=== PATIENT | female | born 1955 | race Caucasian/White ===

== ENCOUNTER 2018-09-12 09:54 | Observation (INO) ==
[2018-09-12 10:38] LABS: Basophils # 0.1 K/mcL (0.0-0.2); Basophils % 0.6 %; Eosinophils # 0.1 K/mcL (0.0-0.6); Eosinophils % 0.8 %; Hematocrit 48.2 % (35.3-44.9); Hemoglobin 15.4 g/dL (11.5-15.4); Immature Granulocytes % 0.9 % (0-4); Lymphocytes # 2.6 K/mcL (0.6-4.6); Lymphocytes % 23.8 %; Mean Corpuscular Hemoglobin 28.9 pg (28.0-33.3); Mean Corpuscular Volume 90.4 fL (83.0-100.0); Mean Platelet Volume 10.5 fL (9.4-12.4); Monocytes # 0.8 K/mcL (0.0-1.3); Monocytes % 7.6 %; Neutrophils # 7.3 K/mcL (1.6-8.9); Platelet Count 194 K/mcL (140-400); Red Blood Count 5.33 M/mcL (3.82-4.97); Red Cell Distribution Width 15.6 % (11.5-14.5); Segmented Neutrophils % 66.3 %; White Blood Count 10.9 K/mcL (4.3-11.1)
[2018-09-12] MEDS ORDERED: cloNIDine HCl 0.1 MG TABLET PO ONE (10:44)
[2018-09-12] MEDS ORDERED: amLODIPine 5 MG TABLET PO STA (10:46)
[2018-09-12 10:58] LABS: BUN/Creatinine Ratio 19 (6-26); Blood Urea Nitrogen 20 mg/dL (8-23); Calcium 8.9 mg/dL (8.6-10.3); Carbon Dioxide 27 mEq/L (23-29); Chloride 107 mEq/L (98-107); Glucose 114 mg/dL (70-105); Osmolality,Calculated 297 (280-300); Potassium 3.3 mEq/L (3.5-5.1); Sodium 142 mEq/L (136-145); Troponin I < 0.03 ng/mL (< 0.04); eGFR For African Americans > 60 (> 60); eGFR For Non-African Americans 53 (> 60)
[2018-09-12 11:01] LABS: Activated Partial Thrombo Time 26.6 Seconds (26.0-36.0); Prothrombin Time 11.6 Seconds (9.4-12.1)
--- NOTE | 2018-09-12 11:21 | Emergency Department Note ---
Disposition Clinical Impression: CVA (cerebral vascular accident), Dyspnea Disposition: Admitted As Inpatient Condition: Good Referrals: Philip Solares DO [Primary Care Provider] - Time of Disposition: 11:20 General Adult HPI - General Chief complaint: ED Shortness of Breath/Dyspnea Stated complaint: GUERRERO Time Seen by Provider: 09/12/18 10:04 Source: patient, EMS Limitations: no limitations Nursing Notes Reviewed: Yes Vital Signs Reviewed: Yes - History of Present Illness HPI Narrative: 63-year-old female presents emergency Department with concerns of difficulty in breathing as well as left upper and left lower extremity weakness and left facial paresthesias. Initially patient reported that her symptoms started at 9 AM this morning however upon further evaluation the patient states her symptoms actually started 2 days ago and have worsened at 9 AM. Stroke alert was called after the initial presentation prior to her stating that it had been going on for 2-3 days. Patient states she does not feel well and has generalized malaise. She denies vomiting, chest pain, abdominal pain, hematochezia, melena. No recent trauma. No changes in her medications. She is significantly hypertensive in the emergency Department however she had not taken her daily antihypertensive medications this morning. These includes clonidine, lisinopril hydrochlorothiazide and amlodipine. Pain Scale: 0 - Related Data Allergies Allergy/AdvReac Type Severity Reaction Status Date / Time No Known Allergies Allergy Verified 09/12/18 10:05 All systems ED: reviewed and negative except as stated. Review of Systems: As Per HPI Past Medical History - Past Medical History Attestation: Yes The following information was validated with the patient. Source: patient Medical history: Reports: CVA, hyperlipidemia, hypertension Psychiatric history: Reports: no psych history - Social History Smoking Status: Former smoker Smokeless Tobacco Status: No Alcohol use: Reports: none Drug use: Reports: none Physical Exam General: Alert and in no acute distress Skin: Warm, dry, intact Head: Normocephalic and atraumatic Neck: Supple, trachea midline and no tenderness Cardiovascular: RRR, no murmur, normal perfusion Respiratory: CTAB, no wheezing, cough, or respiratory distress Musculoskeletal: Normal strength, no tenderness, swelling or deformity GI: Soft, nontender, nondistended. Bowel sounds present Neuro: A&O to person, place, time and situation. 4-5 weakness on the left upper and left lower extremity concerning for possible CVA. Patient does have paresthesias to the entire left side of face. No other cranial nerve deficits. Psychiatric: cooperative and appropriate mood and affect. - General Limitations: no limitations General appearance: alert, in no apparent distress Course Vital Signs Temperature 98.7 F 09/12/18 09:58 Pulse Rate 96 09/12/18 09:58 Respiratory Rate 18 09/12/18 09:58 Blood Pressure 209/152 09/12/18 09:58 O2 Sat by Pulse Oximetry 99 09/12/18 09:58 Temperature 98.7 F 09/12/18 09:58 Pulse Rate 90 09/12/18 10:36 Respiratory Rate 18 09/12/18 10:36 Blood Pressure 162/120 09/12/18 10:36 O2 Sat by Pulse Oximetry 99 09/12/18 09:58 Oxygen Delivery Oxygen Delivery Room Air Medical Decision Making - MDM Narrative Medical decision making narrative: Patient initially presented with concerns of difficulty breathing and generalized malaise however upon further evaluation she reported that she had acute onset of weakness of left upper and left lower extremities. Stroke alert was initiated and then further evaluation stated that she had symptom onset 2-3 days ago and this worsened this morning. CT did not show evidence of acute hemorrhage or mass. I spoke with the [facility] neurologists who recommended that she was safe to stay at [facility] for further evaluation of possible CVA with workup with MRI. Chest x-ray did not show evidence of acute infiltrate. She satting well on room air in the emergency department. Patient is comfortable with the plan for admission to hospitalist. - Medical Records Medical records reviewed: Yes I reviewed the patient's medical records. - Lab Data Lab results reviewed: Yes I reviewed the patient's lab results. Result diagrams: 09/12/18 10:29 09/12/18 10:29 Lab Results 09/12/18 09/12/18 09/12/18 Range/Units 10:09 10:29 10:29 WBC 10.9 (4.3-11.1) K/mcL RBC 5.33 H (3.82-4.97) M/mcL Hgb 15.4 (11.5-15.4) g/dL Hct 48.2 H (35.3-44.9) % MCV 90.4 (83.0-100.0) fL MCH 28.9 (28.0-33.3) pg MCHC 32.0 (31.6-35.5) g/dL RDW 15.6 H (11.5-14.5) % Plt Count 194 (140-400) K/mcL MPV 10.5 (9.4-12.4) fL Immature Gran % 0.9 (0-4) % Seg Neutrophils % 66.3 % Lymphocytes % 23.8 % Monocytes % 7.6 % Eosinophils % 0.8 % Basophils % 0.6 % Neutrophils # 7.3 (1.6-8.9) K/mcL Lymphocytes # 2.6 (0.6-4.6) K/mcL Monocytes # 0.8 (0.0-1.3) K/mcL Eosinophils # 0.1 (0.0-0.6) K/mcL Basophils # 0.1 (0.0-0.2) K/mcL PT (9.4-12.1) Seconds INR APTT (26.0-36.0) Seconds Sodium 142 (136-145) mEq/L Potassium 3.3 L (3.5-5.1) mEq/L Chloride 107 (98-107) mEq/L Carbon Dioxide 27 (23-29) mEq/L BUN 20 (8-23) mg/dL Creatinine 1.05 (0.60-1.20) mg/dL Est GFR ( Amer) > 60 (> 60) Est GFR (Non-Af Amer) 53 L (> 60) BUN/Creatinine Ratio 19 (6-26) Glucose 114 H (70-105) mg/dL POC Glucose 116 H (70-99) mg/dL Calculated Osmolality 297 (280-300) Lactic Acid (0.5-2.2) mmol/L Calcium 8.9 (8.6-10.3) mg/dL Troponin I < 0.03 (< 0.04) ng/mL 09/12/18 09/12/18 Range/Units 10:29 10:51 WBC (4.3-11.1) K/mcL RBC (3.82-4.97) M/mcL Hgb (11.5-15.4) g/dL Hct (35.3-44.9) % MCV (83.0-100.0) fL MCH (28.0-33.3) pg MCHC (31.6-35.5) g/dL RDW (11.5-14.5) % Plt Count (140-400) K/mcL MPV (9.4-12.4) fL Immature Gran % (0-4) % Seg Neutrophils % % Lymphocytes % % Monocytes % % Eosinophils % % Basophils % % Neutrophils # (1.6-8.9) K/mcL Lymphocytes # (0.6-4.6) K/mcL Monocytes # (0.0-1.3) K/mcL Eosinophils # (0.0-0.6) K/mcL Basophils # (0.0-0.2) K/mcL PT 11.6 (9.4-12.1) Seconds INR 1.0 APTT 26.6 (26.0-36.0) Seconds Sodium (136-145) mEq/L Potassium (3.5-5.1) mEq/L Chloride (98-107) mEq/L Carbon Dioxide (23-29) mEq/L BUN (8-23) mg/dL Creatinine (0.60-1.20) mg/dL Est GFR ( Amer) (> 60) Est GFR (Non-Af Amer) (> 60) BUN/Creatinine Ratio (6-26) Glucose (70-105) mg/dL POC Glucose (70-99) mg/dL Calculated Osmolality (280-300) Lactic Acid 1.7 (0.5-2.2) mmol/L Calcium (8.6-10.3) mg/dL Troponin I (< 0.04) ng/mL - Radiology Data Radiology results reviewed: Yes I reviewed the patient's radiology results. - EKG Data EKG #1 EKG attestation: Yes I reviewed and interpreted this EKG. EKG results narrative: Normal sinus rhythm with a rate of 88 without evidence of STEMI or other dysrhythmia.
[2018-09-12] MEDS ORDERED: methylPREDNISolone 125 MG/2 ML VIAL IVP ONE (11:24)
[2018-09-12] MEDS ORDERED: Albuterol 2.5 MG/3 ML NEBULIZER IH ONE (11:24)
[2018-09-12] MEDS ORDERED: Aspirin 81 MG TAB.CHEW PO ONE (11:33)
--- NOTE | 2018-09-12 13:21 | Internal Med History&Physical ---
Date of Encounter: 09/12/18 Time of Encounter: 12:16 Internal Medicine - H&P: HPI History of present illness: Ms. Copeland is a 63 year old female with history of CVA and hypertension presents to ED for a two day history of left sided weakness. She has noticed facial paresthesia, left upper and left lower extremity weakness. She states this feels similar to a past stroke. She is also complaining of episodes of chest pain occuring with this weakness. She does not have any chest pain, palpi tations, vomiting. She had an episode of vomiting. In the ED a stroke alert was called due to concerning symptoms, and patient is not a tpa candidate but they did recommend MRI and further workup. In the ED she was given albuterol without any alleviation of symptoms. She received 324 mg aspirin. BP was elevated with SBP 200s but improved after restarting home medications. Patient states she is still SOB. Past Med Surg Social Fam HX - Past Medical History Medical history: CVA, hyperlipidemia, hypertension Additional medical history: no deficits from CVA Psychiatric history: no psych history - Past Surgical History Additional surgical history: left hip - Social History Smoking Status: Former smoker Smokeless Tobacco Status: No Alcohol use: none Drug use: none Internal Medicine - H&P: Meds Aspirin [Adult Aspirin] 81 mg PO DAILY 09/12/18 [History] Atorvastatin [Lipitor] 80 mg PO HS 09/12/18 [History] BuPROPion XL (24 HR) [Wellbutrin XL] 150 mg PO DAILY 09/12/18 [History] Calcium Carbonate [Calcium] 500 mg PO DAILY 09/12/18 [History] Cholecalciferol (Vitamin D3) [Vitamin D] 2,000 unit PO DAILY 09/12/18 [History] HydrOXYzine [Atarax] 25 mg PO TID PRN 09/12/18 [History] Lisinopril-HCTZ 10-12.5 [Prinzide 10-12.5] 1 each PO DAILY 09/12/18 [History] amLODIPine [Norvasc] 5 mg PO DAILY 09/12/18 [History] cloNIDine HCl [CloNIDine HCl] 0.1 mg PO DAILY 09/12/18 [History] Allergy/AdvReac Type Severity Reaction Status Date / Time No Known Allergies Allergy Verified 09/12/18 10:05 All Systems PM: A 10-system review of systems was performed and is negative for pertinent findings except as documented above in the HPI. - Constitutional Vitals: Temp Pulse Resp BP Pulse Ox 98.7 F 81 18 158/97 94 09/12/18 09:58 09/12/18 12:45 09/12/18 12:45 09/12/18 12:45 09/12/18 12:45 General appearance: Present: A&O X 3, no acute distress Exam: . - Head Head exam: Present: atraumatic, normocephalic - Eye Eye exam: Present: PERRL, conjuntiva pink, sclera anicteric Pupils: Present: PERRL - Neck Neck exam general surgery: Present: supple, trachea midline. Absent: lymphadenopathy - Respiratory Respiratory exam: Present: CTAB. Absent: accessory muscle use, rales, rhonchi, wheezes - Cardiovascular Cardiovascular exam: Present: RRR, +S1, +S2. Absent: diastolic murmur, gallop, rubs, systolic murmur - GI/Abdominal GI/Abdominal exam: Present: normal bowel sounds, soft, no peritoneal signs. Absent: distended, tenderness - Extremities Exam Extremities exam: Present: warm, radial pulses palpable and symmetrical. Absent: calf tenderness, cyanotic, pedal edema - Neurological Exam Neurological exam: Present: CN II-XII intact, oriented X3, no focal deficits. Absent: pronater drift, facial droop, speech deficit - Psychiatric Psychiatric exam: Present: anxious, depressed - Skin Skin exam: Present: dry, intact Additional comments: Both lower extremities have dermatitis above the ankles with some shallow ulcerations without any active bleeding or drainage. Internal Med - H&P Results - Labs CBC & Chem 7: 09/12/18 10:29 09/12/18 10:29 Labs: Short CBC 09/12/18 Range/Units 10:29 WBC 10.9 (4.3-11.1) K/mcL Hgb 15.4 (11.5-15.4) g/dL Hct 48.2 H (35.3-44.9) % Plt Count 194 (140-400) K/mcL Neutrophils # 7.3 (1.6-8.9) K/mcL BMP 09/12/18 10:29 Sodium 142 Potassium 3.3 L Chloride 107 Carbon Dioxide 27 BUN 20 Creatinine 1.05 Glucose 114 H Calcium 8.9 Cardiac Enzymes 09/12/18 Range/Units 10:29 Troponin I < 0.03 (< 0.04) ng/mL - Impressions ITS Impressions Chest X-Ray 09/12/18 10:05 IMPRESSION: Negative portable study. D/ / Naomi Duque Cha, MD / Naomi Duque Cha, MD Interpreting Provider: Naomi Duque Cha, MD Head CT 09/12/18 10:43 IMPRESSION: No acute intracranial hemorrhage, mass effect, or midline shift. Chronic microvascular ischemic changes in the white matter. Lacunar infarct in the right thalamus. Hypodensity in the left thalamus favored to represent a subacute or chronic infarct. Findings discussed with Dr. Spain by Dr. Llanes on 09/12/2018 at 1100 hours. D/ / Raghav Llanes / Raghav Llanes Interpreting Provider: Raghav Llanes - Assessment and Plan (1) Left-sided weakness Current Visit: Yes Status: Acute Assessment and plan: ED course as noted in HPI. Patient states she is still feeling this weakness and parasthesias - Stat MRI - Neurology consult - Echocardiogram - Carotid duplex - Cont aspirin daily. (2) Dyspnea Current Visit: Yes Status: Acute Assessment and plan: Patient states there is no alleviating factors. She is in no acute respiratory distress but she is very anxious appearing. Currently hypertensive and tachycardic and at bedside but she did not have her home clonidine today. Chest x-ray negative, initial troponin negative, EKG does not show any acute findings. BNP borderline elevated at 180. May need to obtain CTA chest to rule out other causes as well as echocardiogram Qualifiers: Dyspnea type: unspecified Qualified Code(s): R06.00 - Dyspnea, unspecified (3) Hypertension Current Visit: Yes Status: Acute Assessment and plan: Will need cautious and gradual lowering of BP, especially if this is acute CVA she may need permissive hypertension. Will follow-up with stat MRI. Qualifiers: Hypertension type: essential hypertension Qualified Code(s): I10 - Essential (primary) hypertension (4) Weakness Current Visit: Yes Status: Acute Assessment and plan: Workup as above. Add B12, TSH, iron studies. (5) DVT prophylaxis Current Visit: Yes Status: Acute Assessment and plan: heparin SQ - Time Spent With Patient Total time spent is greater than 50% in coordination of care (as documented) at patient's floor/unit and/or counseling patient:
[2018-09-12] MEDS ORDERED: Naloxone 0.4 MG/ML INJ IVP PRN (13:45)
[2018-09-12 15:32] LABS: Thyroid Stimulating Hormone 0.449 mcIU/mL (0.340-5.600)
--- NOTE | 2018-09-12 16:59 | Neurology - Consult Note ---
<Nick Plummer - Last Filed: 09/12/18 16:54> Date of Encounter: 09/12/18 Time of Encounter: 16:54 Assessment and Plan (1) CVA (cerebral vascular accident) Current Visit: Yes Status: Suspected Sx are suspicious for acute CVA. I suspect that the HTN emergency has caused vasospasms resulting in the infarct. Risk factors include HLD, poorly controlled HTN NIH - [address]-negative for acute findings; old lacunar infarcts in the rt thalmus and hypodensities in the left thalmus favored to represent a subacute vs chronic infarct. MRI Brain-pending Duplex and echo pending c/w ASA and Statin meds; not recommending med changes at this time In regards to HTN emergency; rec to keep SBP less than 170 Otherwise c/w neurological assessments and NIHSS per protocol C/w telemetry Discussed aggressive risk factor modifications and BP control; may need consultation with HTN specialist as she reports episodes of HTN with severely elevated blood pressures neurology will f/u in am Qualifiers: CVA mechanism: unspecified Qualified Code(s): I63.9 - Cerebral infarction, unspecified History of Present Illness Chief complaint: left arm and facial parasthesias HPI: Ms. Copeland is a 63 year old female with a PMH of CVA, hyperlipidemia, and poorly controlled hypertension who presents to the ED with a CC of left facial and left arm parasthesias and some mild diffuse left sided weakness which began 2-days ago. She denies any visual disturbances, gait disturbances, dysphagia, headaches, chest pain, or palpitations. She admits to HTN with SBP in the 220's and episodic speech slurring. At the time of my assessment her symptoms persist and she reports that they are getting progressively worse. A stroke alert was called and TPA was not recommended given onset of sx. CT of the head shows a questionable area concerning for possible right thalamic infarct. MRI has been completed and the read is pending. Past Med Surg Social Fam HX - Past Medical History Medical history: CVA, hyperlipidemia, hypertension Additional medical history: no deficits from CVA Psychiatric history: no psych history - Past Surgical History Additional surgical history: left hip - Social History Smoking Status: Former smoker Smokeless Tobacco Status: No Alcohol use: none Drug use: none Medications and Allergies Aspirin [Adult Aspirin] 81 mg PO DAILY 09/12/18 [History] Atorvastatin [Lipitor] 80 mg PO HS 09/12/18 [History] BuPROPion XL (24 HR) [Wellbutrin XL] 150 mg PO DAILY 09/12/18 [History] Calcium Carbonate [Calcium] 500 mg PO DAILY 09/12/18 [History] Cholecalciferol (Vitamin D3) [Vitamin D] 2,000 unit PO DAILY 09/12/18 [History] HydrOXYzine [Atarax] 25 mg PO TID PRN 09/12/18 [History] Lisinopril-HCTZ 10-12.5 [Prinzide 10-12.5] 1 each PO DAILY 09/12/18 [History] amLODIPine [Norvasc] 5 mg PO DAILY 09/12/18 [History] cloNIDine HCl [CloNIDine HCl] 0.1 mg PO DAILY 09/12/18 [History] Allergy/AdvReac Type Severity Reaction Status Date / Time No Known Allergies Allergy Verified 09/12/18 10:05 All Systems: The remainder of the systems were reviewed and are negative Review of Systems: REVIEW OF SYSTEMS NEUROLOGIC: Negative for any blurry vision, blind spots, double vision, facial asymmetry, dysphagia, dysarthria, hemiparesis, hemisensory deficits, vertigo, ataxia, seizures, paralysis, tingling, numbness POSITIVE- left arm and face numbness and tingling, left arm and leg weakness, CARDIAC: Negative for any chest pain, dyspnea, peripheral edema or palpitations Physical Examination - Vital Signs Vital Signs: Initial Vital Signs Temp Pulse Resp BP Pulse Ox 98.7 F 96 18 209/152 99 09/12/18 09:58 09/12/18 09:58 09/12/18 09:58 09/12/18 09:58 09/12/18 09:58 - Exam Exam: Examination: General Examination: *CONSTITUTIONAL: Alert and oriented x3, no acute distress *GENERAL APPEARANCE OF PATIENT elderly female generally ill appearing *EYES: pupils equal, round, reactive to light and accommodation, conjunctiva clear without masses or ulcerations, fundi normal. *CARDIOVASCULAR: RRR, no peripheral edema, distal temperature normal, dorsalis pedis pulses normal. Refer to vital signs * MUSCULOSKELETAL: *GAIT AND STATION: Deferred *ASSESSMENT OF MUSCLE STRENGTH IN THE UPPER AND LOWER EXTREMITIES bilateral deltoid, bicep, tricep, plastic maker strength, hip flexors ,anterior tibialis, dorsoflexion of the foot 4/5 *MUSCLE TONE IN THE UPPER AND LOWER EXTREMITIES normal. No abnormal movements, fasciculations or atrophy identified. Neurological: *ORIENTATION to person, situation, time and place *LANGUAGE AND FUNCTION no significant aphasia or dysarthia was noted. *ATTENTION AND CONCENTRATION are normal *LANGUAGE FUNCTION no significant aphasia or dysarthia was noted. *FUND OF KNOWLEDGE aware of current events, past history, vocabulary *MENTAL attention span and concentration normal. *CN II optic fundi were normal, no papilledema noted. *CN III,IV, PERRLA extraocular eye movements were full, no nystagmus and no ptosis noted. *CN V shows normal sensation and jaw opens symmetrically. *CN VII shows normal facial movement symmetrically, upper and lower bilaterally. *CN VIII shows no significant hearing loss on exam *CN IX-Xpalate elevated symmetrically *CN XI normal strength in the sternocleidomastoid muscles, symmetrical shoulder shrugging. *CN XII tongue protruded in the midline, with normal strength and movement. 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 no pathological reflexes were noted. *CEREBELLAR TESTING normal finger to nose *PAIN LEVEL 0/10 Results - Laboratory Findings CBC and BMP: 09/12/18 10:29 09/12/18 10:29 Abnormal lab findings: Abnormal lab results RBC 5.33 M/mcL (3.82-4.97) H 09/12/18 10:29 Hct 48.2 % (35.3-44.9) H 09/12/18 10:29 RDW 15.6 % (11.5-14.5) H 09/12/18 10:29 Potassium 3.3 mEq/L (3.5-5.1) L 09/12/18 10:29 Est GFR (Non-Af Amer) 53 (> 60) L 09/12/18 10:29 Glucose 114 mg/dL (70-105) H 09/12/18 10:29 POC Glucose 116 mg/dL (70-99) H 09/12/18 10:09 B-Natriuretic Peptide 180 pg/mL (Less than 100) H 09/12/18 10:29 - Diagnostic Findings Additional findings: CT/CT stroke alert head wo con IMPRESSION: No acute intracranial hemorrhage, mass effect, or midline shift. Chronic microvascular ischemic changes in the white matter. Lacunar infarct in the right thalamus. Hypodensity in the left thalamus favored to represent a subacute or chronic infarct. Consult Discharge Plan - Plan Referrals: Philip Solares, DO [Primary Care Provider] - <Juan J Amado - Last Filed: 09/12/18 18:11> Date of Encounter: 09/12/18 Assessment and Plan (1) CVA (cerebral vascular accident) Current Visit: Yes Status: Suspected I have personally performed a [id number] assessment of the patient and have reviewed the PA/CONSUMER SAFETY INSPECTOR note. My impressions are as follows: MRI scan of the brain does reveal small areas adjacent to the old infarcts that I believe could be acute infarct. Certainly the location is fitting of her presenting symptoms. I agree with the assessment and plan as outlined above by the MAKEUP ARTISTRY INSTRUCTOR. Since this is likely a vasospastic event due to extreme hypertension, I would not designate this is an aspirin failure. I agree with the recommending aggressive management of her stroke risk factors. Would allow for permissive hypertension for the next 24-48 hrs. and then normalize. I agree with the blood pressure parameters as outlined above. Qualifiers: CVA mechanism: unspecified Qualified Code(s): I63.9 - Cerebral infarction, unspecified History of Present Illness HPI: Chart was reviewed, the patient was seen and examined independently. The case was discussed with the MAKEUP ARTISTRY INSTRUCTOR. I agree with his assessment of the history of present illness as documented above. I did review the MRI scan of the brain which does reveal what appears to be a small area of acute infarct adjacent to the old infarct present in the right thalamus. Patient was extremely hypertensive upon admission. All Systems: The remainder of the systems were reviewed and are negative Review of Systems: The balance of the systems review is negative. Physical Examination - Vital Signs Vital Signs: Initial Vital Signs Temp Pulse Resp BP Pulse Ox 98.7 F 96 18 209/152 99 09/12/18 09:58 09/12/18 09:58 09/12/18 09:58 09/12/18 09:58 09/12/18 09:58 - Exam Exam: I have personally performed a [id number] assessment of the patient and have reviewed the PA/CONSUMER SAFETY INSPECTOR note. My impressions are as follows: I agree with the neurologic examination as documented above. Results - Laboratory Findings CBC and BMP: 09/12/18 10:29 09/12/18 10:29 Abnormal lab findings: Abnormal lab results RBC 5.33 M/mcL (3.82-4.97) H 09/12/18 10:29 Hct 48.2 % (35.3-44.9) H 09/12/18 10:29 RDW 15.6 % (11.5-14.5) H 09/12/18 10:29 Potassium 3.3 mEq/L (3.5-5.1) L 09/12/18 10:29 Est GFR (Non-Af Amer) 53 (> 60) L 09/12/18 10:29 Glucose 114 mg/dL (70-105) H 09/12/18 10:29 POC Glucose 116 mg/dL (70-99) H 09/12/18 10:09 B-Natriuretic Peptide 180 pg/mL (Less than 100) H 09/12/18 10:29
--- NOTE | 2018-09-12 18:00 | Neurology - Consult Note ---
Date of Encounter: 09/12/18 Time of Encounter: 18:00 Assessment and Plan (1) CVA (cerebral vascular accident) Current Visit: Yes Status: Suspected Qualifiers: CVA mechanism: unspecified Qualified Code(s): I63.9 - Cerebral infarction, unspecified History of Present Illness HPI: Ms. Copeland is a 63 year old female Past Med Surg Social Fam HX - Past Medical History Medical history: CVA, hyperlipidemia, hypertension Additional medical history: no deficits from CVA Psychiatric history: no psych history - Past Surgical History Additional surgical history: left hip - Social History Smoking Status: Former smoker Smokeless Tobacco Status: No Alcohol use: none Drug use: none Medications and Allergies Aspirin [Adult Aspirin] 81 mg PO DAILY 09/12/18 [History] Atorvastatin [Lipitor] 80 mg PO HS 09/12/18 [History] BuPROPion XL (24 HR) [Wellbutrin XL] 150 mg PO DAILY 09/12/18 [History] Calcium Carbonate [Calcium] 500 mg PO DAILY 09/12/18 [History] Cholecalciferol (Vitamin D3) [Vitamin D] 2,000 unit PO DAILY 09/12/18 [History] HydrOXYzine [Atarax] 25 mg PO TID PRN 09/12/18 [History] Lisinopril-HCTZ 10-12.5 [Prinzide 10-12.5] 1 each PO DAILY 09/12/18 [History] amLODIPine [Norvasc] 5 mg PO DAILY 09/12/18 [History] cloNIDine HCl [CloNIDine HCl] 0.1 mg PO DAILY 09/12/18 [History] Allergy/AdvReac Type Severity Reaction Status Date / Time No Known Allergies Allergy Verified 09/12/18 10:05 All Systems: The remainder of the systems were reviewed and are negative Physical Examination - Vital Signs Vital Signs: Initial Vital Signs Temp Pulse Resp BP Pulse Ox 98.7 F 96 18 209/152 99 09/12/18 09:58 09/12/18 09:58 09/12/18 09:58 09/12/18 09:58 09/12/18 09:58 Results - Laboratory Findings CBC and BMP: 09/12/18 10:29 09/12/18 10:29 Abnormal lab findings: Abnormal lab results RBC 5.33 M/mcL (3.82-4.97) H 09/12/18 10:29 Hct 48.2 % (35.3-44.9) H 09/12/18 10:29 RDW 15.6 % (11.5-14.5) H 09/12/18 10:29 Potassium 3.3 mEq/L (3.5-5.1) L 09/12/18 10:29 Est GFR (Non-Af Amer) 53 (> 60) L 09/12/18 10:29 Glucose 114 mg/dL (70-105) H 09/12/18 10:29 POC Glucose 116 mg/dL (70-99) H 09/12/18 10:09 B-Natriuretic Peptide 180 pg/mL (Less than 100) H 09/12/18 10:29 Consult Discharge Plan - Plan Referrals: Philip Solares DO [Primary Care Provider] -
[2018-09-12] MEDS ORDERED: *HR* Labetalol 20 MG/4 ML SYRINGE IVP PRN ×2 (18:08→18:10)
[2018-09-12] MEDS ORDERED: *HR* LORazepam 2 MG/ML VIAL IVP ONE (18:09)
[2018-09-13] MEDS: *HR* Heparin 5,000 UNIT/ML VIAL SQ SCH ×2 (05:20→17:13)
[2018-09-13] MEDS: Cholecalciferol (D-3) 1,000 UNIT (25MCG) TABLET PO SCH (08:19)
[2018-09-13] MEDS: amLODIPine 5 MG TABLET PO SCH (08:20)
[2018-09-13] MEDS: BuPROPion XL (24 HR) 150 MG TABLET PO SCH (08:20)
[2018-09-13] MEDS: Aspirin Enteric Coated 81 MG Tablet PO SCH (08:20)
[2018-09-13] MEDS ORDERED: cloNIDine HCl 0.1 MG TABLET PO SCH (09:00)
--- NOTE | 2018-09-13 11:25 | Neurology Progress Note ---
<Nick Plummer Oni - Last Filed: 09/13/18 11:17> Date of Encounter: 09/13/18 Time of Encounter: 11:18 Assessment and Plan (1) CVA (cerebral vascular accident) Current Visit: Yes Status: Suspected Presented with sx of left face and left arm numbness and tingling in the setting of accelerated HTN with SBP in the 200's Sx are persistent today but neurologically there are no finding of any focal deficits CT head was negative for acute infarct showing only chronic findings MRI of the brain did not reveal any acute infarct or intracranial findings Sx are PLAN: c/w Daily ASA and Lipitor at home dose goal SBP less than 170 SBP less than 100 DBP discussed med compliance, strict HTN management, and lifestyle modifications having issues with HTN at home; rec HTN specialist consultation to assist with management Qualifiers: CVA mechanism: unspecified Qualified Code(s): I63.9 - Cerebral infarction, unspecified Objective - Constitutional Vitals: Temp Pulse Resp BP Pulse Ox 97.5 F L 90 16 146/87 97 09/13/18 10:31 09/13/18 10:31 09/13/18 10:31 09/13/18 10:31 09/13/18 10:31 Results - Laboratory Findings CBC and BMP: 09/12/18 10:29 09/12/18 10:29 Abnormal lab findings: Abnormal lab results RBC 5.33 M/mcL (3.82-4.97) H 09/12/18 10:29 Hct 48.2 % (35.3-44.9) H 09/12/18 10:29 RDW 15.6 % (11.5-14.5) H 09/12/18 10:29 Potassium 3.3 mEq/L (3.5-5.1) L 09/12/18 10:29 Est GFR (Non-Af Amer) 53 (> 60) L 09/12/18 10:29 Glucose 114 mg/dL (70-105) H 09/12/18 10:29 POC Glucose 192 mg/dL (70-99) H 09/12/18 20:16 B-Natriuretic Peptide 180 pg/mL (Less than 100) H 09/12/18 10:29 Consult Discharge Plan - Plan Referrals: Philip Solares DO [Primary Care Provider] - (Appointment has been requested.) <Juan J Amado - Last Filed: 09/13/18 15:52> Date of Encounter: 09/13/18 Assessment and Plan (1) CVA (cerebral vascular accident) Current Visit: Yes Status: Suspected I have personally performed a [id number] assessment of the patient and have reviewed the PA/POTTERY STRIPER note. My impressions are as follows: I agree with the assessment of the CMP a stated above. However I would recommend we obtain a carotid Doppler study prior to discharge. 25 minutes was spent with patient today of which greater than 50% of that time was spent in [id number] contact which consisted of obtaining clinical history, neurologic examination discussing test results counseling and coordinating care. Qualifiers: CVA mechanism: unspecified Qualified Code(s): I63.9 - Cerebral infarction, unspecified Subjective Interval history: The chart was reviewed, the patient was seen and examined independently. Patient had an uneventful night. She feels some better today however she still has some sense of paresthesias involving the left him zena-soma. Echocardiogram was unrevealing. I believe we still need to obtain a carotid Doppler study. Blood pressure has been better controlled since admission. Objective - Constitutional Vitals: Temp Pulse Resp BP Pulse Ox 97.9 F 79 15 118/68 96 09/13/18 15:30 09/13/18 15:30 09/13/18 15:30 09/13/18 15:30 09/13/18 15:30 Exam: Examination: General Examination: *CONSTITUTIONAL: Alert and oriented x3, no acute distress *GENERAL APPEARANCE OF PATIENT elderly female generally ill appearing *EYES: pupils equal, round, reactive to light and accommodation, con junctiva clear without masses or ulcerations, fundi normal. *CARDIOVASCULAR: RRR, no peripheral edema, distal temperature normal, dorsalis pedis pulses normal. Refer to vital signs * MUSCULOSKELETAL: *GAIT AND STATION: Deferred *ASSESSMENT OF MUSCLE STRENGTH IN THE UPPER AND LOWER EXTREMITIES bilateral deltoid, bicep, tricep, sole leveler machine strength, hip flexors ,anterior tibialis, dorsoflexion of the foot 4/5 throughout. *MUSCLE TONE IN THE UPPER AND LOWER EXTREMITIES normal. No abnormal movements, fasciculations or atrophy identified. Neurological: *ORIENTATION to person, situation, time and place *LANGUAGE AND FUNCTION no significant aphasia or dysarthia was noted. *ATTENTION AND CONCENTRATION are normal *LANGUAGE FUNCTION no significant aphasia or dysarthia was noted. *FUND OF KNOWLEDGE aware of current events, past history, vocabulary *MENTAL attention span and concentration normal. *CN II optic fundi were normal, no papilledema noted. *CN III,IV, PERRLA extraocular eye movements were full, no nystagmus and no ptosis noted. *CN V shows normal sensation and jaw opens symmetrically. *CN VII shows normal facial movement symmetrically, upper and lower bilaterally. *CN VIII shows no significant hearing loss on exam *CN IX-Xpalate elevated symmetrically *CN XI normal strength in the sternocleidomastoid muscles, symmetrical shoulder shrugging. *CN XII tongue protruded in the midline, with normal strength and movement. 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 no pathological reflexes were noted. *CEREBELLAR TESTING normal finger to nose *PAIN LEVEL 0/10 Results - Laboratory Findings CBC and BMP: 09/12/18 10:29 09/12/18 10:29 Abnormal lab findings: Abnormal lab results RBC 5.33 M/mcL (3.82-4.97) H 09/12/18 10:29 Hct 48.2 % (35.3-44.9) H 09/12/18 10:29 RDW 15.6 % (11.5-14.5) H 09/12/18 10:29 Potassium 3.3 mEq/L (3.5-5.1) L 09/12/18 10:29 Est GFR (Non-Af Amer) 53 (> 60) L 09/12/18 10:29 Glucose 114 mg/dL (70-105) H 09/12/18 10:29 POC Glucose 192 mg/dL (70-99) H 09/12/18 20:16 B-Natriuretic Peptide 180 pg/mL (Less than 100) H 09/12/18 10:29
--- NOTE | 2018-09-13 12:52 | Electrocardiograph Report ---
[address] [place], [place] [address] Test Date: 2018-09-12 Pat Name: Ana Maria Copeland Department: [id number] Room: 3B16 Gender: F Top Trimmer: : [id number] Requested By: Josh Spain Order Number: [id number] Reading MD: Ninfa Diego Measurements Intervals [place] Rate: 88 P: 47 NV: 126 QRS: 12 QRSD: 82 T: 107 QT: 399 QTc: 483 Interpretive Statements Sinus rhythm Nonspecific ST-T abnormality Electronically Signed On 09-13-2018 12:51:07 EDT by Ninfa Diego
--- NOTE | 2018-09-13 13:53 | Internal Med Progress Note ---
Hospitalist Progress Note - Encounter Date of Encounter: 09/13/18 Time of Encounter: 13:51 - Subjective Interval History: Pt seen and examined in the room. Pt reported numbness and weakness of the left side have improved. He has no headache, seizure activity, or aphasia. - Exam Vitals: Temp Pulse Resp BP Pulse Ox 97.5 F L 90 16 146/87 97 09/13/18 10:31 09/13/18 10:31 09/13/18 10:31 09/13/18 10:31 09/13/18 10:31 Exam: PHYSICAL EXAMINATION: GENERAL APPEARANCE: The patient is alert, oriented and in no acute distress. HEENT: Head is normocephalic. The sinuses are nontender. Pupils are equal and reactive. The nares are patent. Oropharynx clear without lesions. NECK: Supple without lymphadenopathy. HEART: Regular rate and rhythm. LUNGS: No crackles or wheezes are heard. ABDOMEN: Soft, nontender, nondistended with good bowel sounds heard. Inguinal area is normal. EXTREMITIES: Without cyanosis, clubbing or edema. NEUROLOGICAL: Gross nonfocal. SKIN: Warm and dry without any rash. - Assessment and Plan (1) Dyspnea Current Visit: Yes Status: Acute Assessment and Plan: Pt denies chest pain and sob. (2) Left-sided weakness Current Visit: Yes Status: Acute Assessment and Plan: 09/12 ED course as noted in HPI. Patient states she is still feeling this weakness and parasthesias - Stat MRI - Neurology consult - Echocardiogram - Carotid duplex - Cont aspirin daily. 09/13 Neuro following. (3) DVT prophylaxis Current Visit: Yes Status: Acute Assessment and Plan: heparin SQ (4) Hypertension Current Visit: Yes Status: Acute Assessment and Plan: Neuro following. (5) Weakness Current Visit: Yes Status: Acute Assessment and Plan: Workup as above. - Time Spent with Patient Total time spent is greater than 50% in coordination of care (as documented) at patient's floor/unit and/or counseling patient: Greater than 35 minutes Plan of Care Discussed with: patient Internal Medicine: Result - Labs CBC & Chem 7: 09/12/18 10:29 09/12/18 10:29 Labs: Cardiac Enzymes 09/13/18 Range/Units 11:58 Troponin I < 0.03 (< 0.04) ng/mL - ABG Interpretation ABG results: PT/INR, D-dimer PT 11.6 Seconds (9.4-12.1) 09/12/18 10:51 - Impressions Impressions Brain MRI 09/12/18 13:49 IMPRESSION: Cerebral atrophy. Severe chronic small vessel ischemic disease. Previous areas of injury or infarct in the basal ganglia and thalami. There are no areas of restricted diffusion to suggest an acute ischemic event. D/ / 09/12/2018 17:31:49 Merari Richmond MD / delores Interpreting Provider: Merari Richmond MD Echocardiogram 09/12/18 13:49 Impressions: Sinus tachycardia. LVEF 65-70%. Indeterminate diastolic function. Normal right ventricular structure and function. No significant valvular dysfunction. No pulmonary hypertension based on TR signal obtained. Left Ventricular Wall Motion: Rest Echo Findings All wall segments showed normal motion. Findings: Study Quality * Technically adequate exam. ECG Findings * Sinus tachycardia. Left Ventricle * LVEF 65-70%. * Indeterminate diastolic function. * LV chamber size and wall thickness are grossly normal. Right Ventricle * Normal right ventricular structure and function. Left Atrium * Normal left atrial size. Right Atrium * Normal right atrial size. Aortic Valve * No aortic regurgitation. * Aortic valve not well visualized. * No aortic stenosis. Mitral Valve * No mitral regurgitation. * No mitral stenosis. * Mitral valve not well visualized. Tricuspid Valve * Tricuspid valve not well visualized. * Trace tricuspid regurgitation. * Estimated RA pressure is 8 mmHg. Pulmonic Valve * Pulmonic valve is not well visualized. * No pulmonic stenosis. * No pulmonic regurgitation. Pulmonary Artery * Pulmonary artery not well visualized. Aorta * Not well visualized. Pericardium * There is no pericardial effusion present. Interatrial Septum * No evidence of PFO by color Doppler. IVC * The IVC is not dilated. * < 50% respiratory change. Consult Discharge Plan - Plan Referrals: Philip Solares DO [Primary Care Provider] - (Appointment has been requested.) (1) Dyspnea Qualifiers: Dyspnea type: unspecified Qualified Code(s): R06.00 - Dyspnea, unspecified (4) Hypertension Qualifiers: Hypertension type: essential hypertension Qualified Code(s): I10 - Essential (primary) hypertension
[2018-09-13] MEDS: cloNIDine HCl 0.1 MG TABLET PO SCH (21:46)
[2018-09-14 01:07] LABS: Basophils % 0.3 %; Eosinophils % 0.2 %; Hematocrit 41.9 % (35.3-44.9); Immature Granulocytes % 0.8 % (0-4); Lymphocytes # 1.8 K/mcL (0.6-4.6); Lymphocytes % 14.1 %; Mean Corpuscular HGB Conc 31.5 g/dL (31.6-35.5); Mean Corpuscular Hemoglobin 29.3 pg (28.0-33.3); Mean Corpuscular Volume 93.1 fL (83.0-100.0); Mean Platelet Volume 10.7 fL (9.4-12.4); Monocytes % 7.6 %; Neutrophils # 9.9 K/mcL (1.6-8.9); Platelet Count 191 K/mcL (140-400); Red Cell Distribution Width 15.9 % (11.5-14.5); White Blood Count 12.8 K/mcL (4.3-11.1)
[2018-09-14 01:12] LABS: Hemoglobin 13.2 g/dL (11.5-15.4)
[2018-09-14 01:22] LABS: Calcium 8.5 mg/dL (8.6-10.3); Potassium 4.1 mEq/L (3.5-5.1)
[2018-09-14] MEDS: *HR* Heparin 5,000 UNIT/ML VIAL SQ SCH (05:37)
--- NOTE | 2018-09-14 08:39 | Discharge Summary ---
- NOTES TO OUTPATIENT PROVIDER Notes to Outpatient Provider: f/u with PCP within 2 weeks. Orders not resulted at time of discharge: Pending orders 09/12/18 14:09 Vitamin B1 (Thiamine) Whole Bl Routine Date of Encounter: 09/14/18 Time of Encounter: 08:35 - Discharge Diagnosis (1) Dyspnea Priority: Primary Status: Acute Qualifiers: Dyspnea type: unspecified Qualified Code(s): R06.00 - Dyspnea, unspecified (2) Left-sided weakness Priority: Primary Status: Acute (3) DVT prophylaxis Priority: Primary Status: Acute (4) Hypertension Priority: Secondary Status: Chronic Qualifiers: Hypertension type: essential hypertension Qualified Code(s): I10 - Essential (primary) hypertension (5) Weakness Priority: Secondary Status: Chronic Hospital course: Ms. Copeland is a 63 year old female with history of CVA and hypertension presents to ED for a two day history of left sided weakness. She has noticed facial paresthesia, left upper and left lower extremity weakness. She states this feels similar to a past stroke. She is also complaining of episodes of chest pain occuring with this weakness. She does not have any chest pain, palpitations, vomiting. She had an episode of vomiting. In the ED a stroke alert was called due to concerning symptoms, and patient is not a tpa candidate but they did recommend MRI and further workup. In the ED she was given albuterol without any alleviation of symptoms. She received 324 mg aspirin. BP was elevated with SBP 200s but improved after restarting home medications. Patient states she is still SOB. Further workup including MRI of brain was negative for stroke. Pt symptoms have resolved. Her BP was elevated, BP meds have adjusted, currently BP was controlled. Pt is discharged home today, f/u with PCP within 2 weeks. Discharge discussed with: patient Time spent discussing smoking cessation with patient: more than 10 minutes - Time Spent with Patient Total time spent providing and/or coordinating discharge services: Time spent: Greater than 30 minutes - Discharge Medications Prescriptions: New Lisinopril [Zestril] 20 mg PO DAILY #30 tablet Continued BuPROPion XL (24 HR) [Wellbutrin Xl] 150 mg PO DAILY amLODIPine [Norvasc] 5 mg PO DAILY cloNIDine HCl [CloNIDine HCl] 0.1 mg PO BID Calcium Carbonate [Calcium] 500 mg PO DAILY Cholecalciferol (Vitamin D3) [Vitamin D3] 2,000 unit PO DAILY cloNIDine HCl [CloNIDine HCl] 0.05 mg PO 1200 Aspirin [Adult Aspirin Regimen] 81 mg PO DAILY Atorvastatin Calcium [Lipitor] 80 mg PO HS Glucosamine Sulfate Dipot Chlr [Glucosamine] 1,000 mg PO DAILY hydrOXYzine HCl [Hydroxyzine HCl] 25 - 50 mg PO Q6H PRN PRN Reason: Anxiety Discontinued Lisinopril/Hydrochlorothiazide [Zestoretic 20-25 mg Tablet] 1 tab PO BID Home Medications: BuPROPion XL (24 HR) [Wellbutrin Xl] 150 mg PO DAILY 09/12/18 [History] Calcium Carbonate [Calcium] 500 mg PO DAILY 09/12/18 [History] Cholecalciferol (Vitamin D3) [Vitamin D3] 2,000 unit PO DAILY 09/12/18 [History] amLODIPine [Norvasc] 5 mg PO DAILY 09/12/18 [History] cloNIDine HCl [CloNIDine HCl] 0.05 mg PO 1200 09/12/18 [History] cloNIDine HCl [CloNIDine HCl] 0.1 mg PO BID 09/12/18 [History] Aspirin [Adult Aspirin Regimen] 81 mg PO DAILY 09/13/18 [History] Atorvastatin Calcium [Lipitor] 80 mg PO HS 09/13/18 [History] Glucosamine Sulfate Dipot Chlr [Glucosamine] 1,000 mg PO DAILY 09/13/18 [History] hydrOXYzine HCl [Hydroxyzine HCl] 25 - 50 mg PO Q6H PRN 09/13/18 [History] Lisinopril [Zestril] 20 mg PO DAILY #30 tablet 09/14/18 [Rx] Allergies/Adverse Reactions: Allergy/AdvReac Type Severity Reaction Status Date / Time No Known Allergies Allergy Verified 09/13/18 17:39 Date of admission: 09/12/18 12:39 Primary care physician: Philip Solares Consults: 09/12/18 13:49 Consult to Physical Therapy [CONS] Routine Comment: Evaluate, develop and implement POC Reason for Consult: Disposition planning. Therapy - weakness in bed. Does patient have active BEDREST order?: No Is patient medically & hemodynamically stable?: Yes 09/12/18 14:15 Consult to Neurology [CONS] Routine Consulting Provider: Neurology [facility] Reason for Consult: r/o CVA Call Completed: Yes Anticipated date of discharge: 09/14/18 - Constitutional Vitals: Temp Pulse Resp BP Pulse Ox 97.4 F L 75 14 143/92 97 09/14/18 06:33 09/14/18 06:33 09/14/18 06:33 09/14/18 06:33 09/14/18 06:33 General appearance: Present: A&O X 3, no acute distress Exam: PHYSICAL EXAMINATION: GENERAL APPEARANCE: The patient is alert, oriented and in no acute distress. HEENT: Head is normocephalic. The sinuses are nontender. Pupils are equal and reactive. The nares are patent. Oropharynx clear without lesions. NECK: Supple without lymphadenopathy. HEART: Regular rate and rhythm. LUNGS: No crackles or wheezes are heard. ABDOMEN: Soft, nontender, nondistended with good bowel sounds heard. Inguinal area is normal. EXTREMITIES: Without cyanosis, clubbing or edema. NEUROLOGICAL: Gross nonfocal. SKIN: Warm and dry without any rash. - Patient Status Disposition: Home, Self-Care Condition: Good Functional capacity at discharge: independent ambulation Overall status at discharge: patient is progressing back to baseline - Discharge Instructions Follow Up With: Philip Solares DO [Primary Care Provider] - (Appointment has been requested.) - Diet and Activity Activity: increase activity as tolerated Diet: low fat, low cholesterol, low salt diet
--- NOTE | 2018-09-14 08:52 | Neurology Progress Note ---
<Nick Plummer - Last Filed: 09/14/18 11:46> Date of Encounter: 09/14/18 Time of Encounter: 08:50 Assessment and Plan (1) TIA (transient ischemic attack) Status: Acute Patient seen in follow-up with concerns for acute CVA VS TIA. She had symptoms consisting of left facial and left arm numbness and tingling. Currently, her symptoms persist but somewhat but have improved since admission. Of note, she also had hypertensive emergency on admission with SBP in the 220s. MRI findings did not reveal any acute changes. Nevertheless her symptoms were likely brought on by hypertensive emergency and one could consider a TIA as the cause of symptoms. We do note recommend any changes to her current secondary stroke preventative measures with aspirin and Lipitor. A TTE was completed and did not identify any PFO or valvular DYSFUNCTION AND HAD AN EF of 65-70%. A carotid duplex study shows non-stenotic plaque bilaterally. Neurology will sign off at this time. Please follow-up with neurology upon DC. Subjective Principal diagnosis: f/u for suspected CVA Interval history: Seen in f/u for suspected CVA. SX are consistent with infarct although MRI findings do not suggest an acute infarct; consider a subacute infarct in the Rt thalmus. Nonetheless her sx were brought on by HTN emergency and the treatment does not change. Continue current secondary preventative measures and strict HTN control. Objective - Constitutional Vitals: Temp Pulse Resp BP Pulse Ox 97.4 F L 75 14 143/92 97 09/14/18 06:33 09/14/18 06:33 09/14/18 06:33 09/14/18 06:33 09/14/18 06:33 Exam: Examination: General Examination: *CONSTITUTIONAL: Alert and oriented x3, no acute distress *GENERAL APPEARANCE OF PATIENT elderly female generally ill appearing *EYES: pupils equal, round, reactive to light and accommodation, conjunctiva clear without masses or ulcerations, fundi normal. *CARDIOVASCULAR: regular rate and rhythm, no peripheral edema, distal temperature normal, dorsalis pedis pulses normal. Refer to vital signs * MUSCULOSKELETAL: *GAIT AND STATION: Deferred *ASSESSMENT OF MUSCLE STRENGTH IN THE UPPER AND LOWER EXTREMITIES bilateral deltoid, bicep, tricep, geophysical e logger strength, hip flexors ,anterior tibialis, dorsoflexion of the foot 4/5 throughout. *MUSCLE TONE IN THE UPPER AND LOWER EXTREMITIES normal. No abnormal movements, fasciculations or atrophy identified. Neurological: *ORIENTATION to person, situation, time and place *LANGUAGE AND FUNCTION no significant aphasia or dysarthia was noted. *ATTENTION AND CONCENTRATION are normal *LANGUAGE FUNCTION no significant aphasia or dysarthia was noted. *FUND OF KNOWLEDGE aware of current events, past history, vocabulary *MENTAL attention span and concentration normal. *CN II optic fundi were normal, no papilledema noted. *CN III,IV, PERRLA extraocular eye movements were full, no nystagmus and no ptosis noted. *CN V shows normal sensation and jaw opens symmetrically. *CN VII shows normal facial movement symmetrically, upper and lower bilaterally. *CN VIII shows no significant hearing loss on exam *CN IX-X palate elevated symmetrically *CN XI normal strength in the sternocleidomastoid muscles, symmetrical shoulder shrugging. *CN XII tongue protruded in the midline, with normal strength and movement. 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 no pathological reflexes were noted. *CEREBELLAR TESTING normal finger to nose *PAIN LEVEL 0/10 Results - Laboratory Findings CBC and BMP: 09/14/18 00:37 09/14/18 00:37 Abnormal lab findings: Abnormal lab results WBC 12.8 K/mcL (4.3-11.1) H 09/14/18 00:37 RBC 5.33 M/mcL (3.82-4.97) H 09/12/18 10:29 Hct 48.2 % (35.3-44.9) H 09/12/18 10:29 MCHC 31.5 g/dL (31.6-35.5) L 09/14/18 00:37 RDW 15.9 % (11.5-14.5) H 09/14/18 00:37 Neutrophils # 9.9 K/mcL (1.6-8.9) H 09/14/18 00:37 Potassium 3.3 mEq/L (3.5-5.1) L 09/12/18 10:29 Chloride 109 mEq/L (98-107) H 09/14/18 00:37 BUN 43 mg/dL (8-23) H 09/14/18 00:37 Creatinine 1.45 mg/dL (0.60-1.20) H 09/14/18 00:37 Est GFR ( Amer) 44 (> 60) L 09/14/18 00:37 Est GFR (Non-Af Amer) 36 (> 60) L 09/14/18 00:37 BUN/Creatinine Ratio 30 (6-26) H 09/14/18 00:37 Glucose 138 mg/dL (70-105) H 09/14/18 00:37 POC Glucose 146 mg/dL (70-99) H 09/13/18 20:07 Calculated Osmolality 301 (280-300) H 09/14/18 00:37 Calcium 8.5 mg/dL (8.6-10.3) L 09/14/18 00:37 B-Natriuretic Peptide 180 pg/mL (Less than 100) H 09/12/18 10:29 Consult Discharge Plan - Plan Instructions: Lisinopril (By mouth), Transient Ischemic Attack (DC), Fall Prevention, Wharf Attendant (GEN) Additional Instructions: Follow-up appointments: If there is not an appointment listed below, please call your physician and schedule a follow-up appointment. If you have congestive heart failure and your symptoms return, make an appointment with your physician. Medication List: Carry an up to date list of medications you are taking at all time. We have given you an updated medication list including any new medications that you have been prescribed. Please provide that list to your primary provider Symptoms: If your condition changes or you experience any of the following symptoms, notify your physician immediately: Unusual or worsening pain, fever, persistent nausea and vomiting, bleeding, increase in swelling (especially in your legs), sudden weight gain, extreme dizziness, chest pain, increased drainage or redness from a wound or incision. Go to the emergency department if you experience a problem with breathing. Weights: If you have a history of swelling or shortness of breath, weigh yourself daily and notify your physician if you have a weight gain of two or more pounds in one day or 5 or more pounds in a week. If you experience any of the warning signs for stroke: Sudden numbness or weakness of the face, arm or leg; especially on one side of the body, sudden confusion, trouble speaking or understanding, sudden trouble seeing in one or both eyes, sudden trouble walking, dizziness, loss of balance or coordination, sudden sever headache with no cause; Call 911 or go to the emergency room. Stroke is a medical emergency. Some risk factors for stroke: Age, cigarette smoking, diabetes, excessive alcohol consumption, family history, high blood pressure, overweight, physical inactivity, prior stroke, heart attack, diagnosis of carotid artery stenosis or other artery disease. If you smoke, STOP: Smoking or tobacco use significantly increases your risk of heart and lung disease. Your chance of disease greatly increases if you continue to smoke. For more information, call the [employer] tobacco quit line for smoking cessation 7-316-VVMF-NOW ( ) Referrals: Philip Solares, [Primary Care Provider] - (Please contact the office to schedule a follow up in 7-10 days. Thank you. ) Prescriptions: Lisinopril [Zestril] 20 mg PO DAILY #30 tablet <Juan J Amado - Last Filed: 09/14/18 16:51> Date of Encounter: 09/14/18 Assessment and Plan (1) TIA (transient ischemic attack) Status: Acute I have personally performed a [id number] assessment of the patient and have reviewed the PA/CONCERT OR LECTURE HALL MANAGER note. My impressions are as follows: I agree with the assessment and plan as documented above by the MANAGER ROOM. I will reevaluate her at your request. Subjective Interval history: Chart was reviewed, patient was seen and examined independently. Case was discussed with the MANAGER ROOM. I agree with his documentation of the history of prese nt illness as stated above. Objective - Constitutional Vitals: Temp Pulse Resp BP Pulse Ox 97.8 F 72 20 136/93 97 09/14/18 10:40 09/14/18 10:40 09/14/18 10:40 09/14/18 10:40 09/14/18 10:40 Exam: I have personally performed a kzoh-qy-peci assessment of the patient and have reviewed the PA/CONCERT OR LECTURE HALL MANAGER note. My impressions are as follows: I agree with the documentation of the neurologic exam as above. Results - Laboratory Findings CBC and BMP: 09/14/18 00:37 09/14/18 00:37 Abnormal lab findings: Abnormal lab results WBC 12.8 K/mcL (4.3-11.1) H 09/14/18 00:37 RBC 5.33 M/mcL (3.82-4.97) H 09/12/18 10:29 Hct 48.2 % (35.3-44.9) H 09/12/18 10:29 MCHC 31.5 g/dL (31.6-35.5) L 09/14/18 00:37 RDW 15.9 % (11.5-14.5) H 09/14/18 00:37 Neutrophils # 9.9 K/mcL (1.6-8.9) H 09/14/18 00:37 Potassium 3.3 mEq/L (3.5-5.1) L 09/12/18 10:29 Chloride 109 mEq/L (98-107) H 09/14/18 00:37 BUN 43 mg/dL (8-23) H 09/14/18 00:37 Creatinine 1.45 mg/dL (0.60-1.20) H 09/14/18 00:37 Est GFR ( Amer) 44 (> 60) L 09/14/18 00:37 Est GFR (Non-Af Amer) 36 (> 60) L 09/14/18 00:37 BUN/Creatinine Ratio 30 (6-26) H 09/14/18 00:37 Glucose 138 mg/dL (70-105) H 09/14/18 00:37 POC Glucose 146 mg/dL (70-99) H 09/13/18 20:07 Calculated Osmolality 301 (280-300) H 09/14/18 00:37 Calcium 8.5 mg/dL (8.6-10.3) L 09/14/18 00:37 B-Natriuretic Peptide 180 pg/mL (Less than 100) H 09/12/18 10:29
[2018-09-14] MEDS: BuPROPion XL (24 HR) 150 MG TABLET PO SCH (09:05)
[2018-09-14] MEDS: Cholecalciferol (D-3) 1,000 UNIT (25MCG) TABLET PO SCH (09:05)
[2018-09-14] MEDS: cloNIDine HCl 0.1 MG TABLET PO SCH (09:05)
[2018-09-14] MEDS: Aspirin Enteric Coated 81 MG Tablet PO SCH (09:05)
[2018-09-14] MEDS: amLODIPine 5 MG TABLET PO SCH (09:06)
--- NOTE | 2018-09-14 09:10 | Physician Discharge Referral ---
Home Health/Hosp Referral Info Transfer to: Home Health Provider in Charge Post Discharge: PCP - Diagnosis (1) Dyspnea Priority: Primary Status: Acute (2) Left-sided weakness Priority: Primary Status: Acute (3) DVT prophylaxis Priority: Primary Status: Acute (4) Hypertension Priority: Secondary Status: Chronic (5) Weakness Priority: Primary Status: Chronic - Respiratory Orders Smoking Cessation: Smoking cessation has been advised. For more information, call the [place] Tobacco Quit Line at 7-024-MCDZ-NOW. - Services Needed Following services are medically necessary services: Nursing, Home Health Aide, Physical Therapy, Occupational Therapy - Transfer Medications Prescriptions: Lisinopril [Zestril] 20 mg PO DAILY #30 tablet Home Medications: BuPROPion XL (24 HR) [Wellbutrin Xl] 150 mg PO DAILY 09/12/18 [History] Calcium Carbonate [Calcium] 500 mg PO DAILY 09/12/18 [History] Cholecalciferol (Vitamin D3) [Vitamin D3] 2,000 unit PO DAILY 09/12/18 [History] amLODIPine [Norvasc] 5 mg PO DAILY 09/12/18 [History] cloNIDine HCl [CloNIDine HCl] 0.05 mg PO 1200 09/12/18 [History] cloNIDine HCl [CloNIDine HCl] 0.1 mg PO BID 09/12/18 [History] Aspirin [Adult Aspirin Regimen] 81 mg PO DAILY 09/13/18 [History] Atorvastatin Calcium [Lipitor] 80 mg PO HS 09/13/18 [History] Glucosamine Sulfate Dipot Chlr [Glucosamine] 1,000 mg PO DAILY 09/13/18 [History] hydrOXYzine HCl [Hydroxyzine HCl] 25 - 50 mg PO Q6H PRN 09/13/18 [History] Lisinopril [Zestril] 20 mg PO DAILY #30 tablet 09/14/18 [Rx] Allergies/Adverse Reactions: Allergy/AdvReac Type Severity Reaction Status Date / Time No Known Allergies Allergy Verified 09/13/18 17:39 Certification: Further, I certify that my clinical findings support that this patient is homebound (i.e. absences from home require considerable and taxing effort and are for medical reasons or mandaeism services or infrequently or short duration when for other reasons) because: Homebound Reason: Patient requires assistance of a person or device to safely leave home Attestation: My signature below is to certify that this patient is under my care and that I, or nurse practitioner, or a physician's account management assistant working with me, has a nlbf-vo-gril encounter with this patient.
[2018-09-14 11:00] VITALS: BP 136/93
== END 2018-09-14 13:20 | disposition home or self-care (01) ==
LOC: EMEROOARM 09:54 → 3BNU 09:54
PROVIDERS: ADMIT Student in an Organized Health Care Education/Training Program; ATTEND Student in an Organized Health Care Education/Training Program

== ENCOUNTER 2018-09-21 08:26 | Observation (INO) ==
[2018-09-21 08:52] LABS: Hematocrit 45.1 % (35.3-44.9); Hemoglobin 14.2 g/dL (11.5-15.4); Mean Corpuscular HGB Conc 31.5 g/dL (31.6-35.5); Mean Corpuscular Hemoglobin 28.8 pg (28.0-33.3); Mean Corpuscular Volume 91.5 fL (83.0-100.0); Mean Platelet Volume 10.5 fL (9.4-12.4); Platelet Count 191 K/mcL (140-400); Red Blood Count 4.93 M/mcL (3.82-4.97); Red Cell Distribution Width 16.4 % (11.5-14.5); White Blood Count 8.9 K/mcL (4.3-11.1)
[2018-09-21 08:59] LABS: Bilirubin,Urine Negative (Negative); Blood,Urine Negative (Negative); Clarity,Urine Clear (Clear); Color,Urine Yellow (Yellow); Glucose,Urine (UA) Normal (Normal); Ketones,Urine Negative (Negative); Leukocyte Esterase,Urine Negative (Negative); Nitrite,Urine Negative (Negative); Protein,Urine Negative (Neg-Trace); Specific Gravity,Urine < 1.005 (1.010-1.025); Urobilinogen,Urine Normal (Normal)
[2018-09-21 09:00] LABS: INR 0.9; Prothrombin Time 10.5 Seconds (9.4-12.1)
[2018-09-21 09:02] LABS: Alanine Aminotransferase 37 Units/L (7-52); Albumin 3.9 g/dL (3.5-5.7); Albumin/Globulin Ratio 1.8 (1.1-2.2); Alkaline Phosphatase 65 Units/L (34-104); Aspartate Amino Transferase 21 Units/L (13-39); BUN/Creatinine Ratio 17 (6-26); Bilirubin,Direct 0.1 mg/dL (0.0-0.2); Bilirubin,Indirect 0.5 mg/dL (0.0-1.2); Bilirubin,Total 0.6 mg/dL (0.3-1.0); Blood Urea Nitrogen 17 mg/dL (8-23); Calcium 9.4 mg/dL (8.6-10.3); Carbon Dioxide 30 mEq/L (23-29); Chloride 103 mEq/L (98-107); Globulin 2.2 g/dL (2.4-3.5); Glucose 119 mg/dL (70-105); Osmolality,Calculated 297 (280-300); Potassium 4.1 mEq/L (3.5-5.1); Sodium 142 mEq/L (136-145); Total Protein 6.1 g/dL (6.4-8.9); eGFR For African Americans > 60 (> 60); eGFR For Non-African Americans 55 (> 60)
--- NOTE | 2018-09-21 09:03 | Emergency Department Note ---
Disposition Clinical Impression: Facial numbness High blood pressure Qualifiers: Hypertension type: unspecified Qualified Code(s): I10 - Essential (primary) hypertension Disposition: Admitted As Inpatient Condition: Fair Time of Disposition: 11:15 General Adult HPI - General Chief complaint: ED Neuro Symptoms/Deficit Stated complaint: facial numbness Time Seen by Provider: 09/21/18 08:36 Source: patient, EMS Mode of arrival: EMS Limitations: no limitations Nursing Notes Reviewed: Yes Vital Signs Reviewed: Yes - History of Present Illness HPI Narrative: Patient is a 63-year-old female past medical history of CVA/TIA presenting to the ED for evaluation of high blood pressure. Patient states symptoms as sociated with a high blood pressure included numbness of her left face, however she has chronic numbness of the left face from a prior stroke years ago which she states that it feels worse than usual. Denies any other focal neurological deficits. States that when she went to bed she did not have these symptoms. So multiple blood pressure medications and she states that she is compliant with them all. Denies blood thinners. Pain Scale: 0 - Related Data Home Medications Medication Instructions Recorded Confirmed BuPROPion XL (24 HR) [Wellbutrin 150 mg PO DAILY 09/12/18 09/21/18 Xl] Calcium Carbonate [Calcium] 500 mg PO DAILY 09/12/18 09/21/18 Cholecalciferol (Vitamin D3) 2,000 unit PO DAILY 09/12/18 09/21/18 [Vitamin D3] amLODIPine [Norvasc] 5 mg PO DAILY 09/12/18 09/21/18 cloNIDine HCl [CloNIDine HCl] 0.05 mg PO 1200 09/12/18 09/21/18 cloNIDine HCl [CloNIDine HCl] 0.1 mg PO BID 09/12/18 09/21/18 Aspirin [Adult Aspirin Regimen] 81 mg PO DAILY 09/13/18 09/21/18 Atorvastatin Calcium [Lipitor] 80 mg PO HS 09/13/18 09/21/18 Glucosamine Sulfate Dipot Chlr 1,000 mg PO DAILY 09/13/18 09/21/18 [Glucosamine] hydrOXYzine HCl [Hydroxyzine HCl] 25 - 50 mg PO Q6H PRN 09/13/18 09/21/18 Previous Rx's Medication Instructions Recorded Lisinopril [Zestril] 20 mg PO DAILY #30 tablet 09/14/18 Allergies Allergy/AdvReac Type Severity Reaction Status Date / Time No Known Allergies Allergy Verified 09/13/18 17:39 All systems ED: reviewed and negative except as stated. Review of Systems: As Per HPI Constitutional: Denies: fever, chills Cardiovascular: Denies: chest pain, palpitations, dyspnea on exertion Respiratory: Denies: cough, dyspnea, wheezes Gastrointestinal: Denies: abdominal pain, nausea, vomiting, diarrhea Genitourinary: Denies: urgency, dysuria Musculoskeletal: Denies: back pain Integumentary: Denies: rash Neurological: Reports: paresthesias. Denies: headache, weakness, numbness, confusion Past Medical History - Past Medical History Attestation: Yes The following information was validated with the patient. Medical history: Reports: CVA, hyperlipidemia, hypertension Psychiatric history: Reports: no psych history - Social History Smoking Status: Former smoker Smokeless Tobacco Status: No Alcohol use: Reports: none Drug use: Reports: none Physical Exam CONSTITUTIONAL: Well-appearing; well-nourished; A&O X 3, in no apparent distress. Hypertensive. HEAD: Normocephalic; atraumatic EYES: PERRL, no scleral icterus NOSE: The nose is normal in appearance without rhinorrhea NECK: No JVD or distended neck veins RESP: Normal chest excursion with respiration; breath sounds clear and equal bilaterally; no wheezes, rhonchi, or rales CARD: Regular rhythm, without murmurs, rub or gallop ABD: Non-distended; non-tender, soft, without rigidity, rebound or guarding,no pulsatile mass CHEST: No pain with palpation SKIN: Normal for age and race; warm and dry without diaphoresis ; no apparent lesions EXTREMITIES: Pulses are 2 plus and equal times 4 extremities, no peripheral noy ma or calf muscle pain NEUROLOGICAL: Patient is alert and oriented times three. Cranial nerves III- XII are intact. Sensory and motor functions are intact. Strength is 5/5 for flexion and extension in all 4 extremities. Patellar DTRS are equal and intact. Finger to nose testing is equal and normal bilaterally. Decreased sensation in the left face but remains intact. - General Limitations: no limitations General appearance: alert, in no apparent distress Course Course Narrative: Patient presented for evaluation of facial numbness that is acute on chronic in the setting of high blood pressure. She had workup performed for evaluation for end organ damage. Her lab work was unremarkable for any signs of an organ damage. Her EKG was nonischemic in her chest x-ray is within normal limits. She also had a head CT which showed no acute changes. She is given labetalol f or blood pressure which she had improvement. She is noted the hospitalist for further evaluation. Vital Signs Temperature 98.1 F 09/21/18 08:31 Pulse Rate 87 09/21/18 08:31 Respiratory Rate 18 09/21/18 08:31 Blood Pressure 197/125 09/21/18 08:31 O2 Sat by Pulse Oximetry 99 09/21/18 08:31 Temperature 98.7 F 09/21/18 16:03 Pulse Rate 72 09/21/18 16:03 Respiratory Rate 15 09/21/18 16:03 Blood Pressure 147/97 09/21/18 16:03 O2 Sat by Pulse Oximetry 97 09/21/18 16:03 Oxygen Delivery Oxygen Delivery Room Air Medical Decision Making - Medical Records Medical records reviewed: Yes I reviewed the patient's medical records. - Lab Data Lab results reviewed: Yes I reviewed the patient's lab results. Result diagrams: 09/21/18 08:34 09/21/18 08:34 Lab Results 09/21/18 09/21/18 09/21/18 Range/Units 08:30 08:34 08:34 WBC 8.9 (4.3-11.1) K/mcL RBC 4.93 (3.82-4.97) M/mcL Hgb 14.2 (11.5-15.4) g/dL Hct 45.1 H (35.3-44.9) % MCV 91.5 (83.0-100.0) fL MCH 28.8 (28.0-33.3) pg MCHC 31.5 L (31.6-35.5) g/dL RDW 16.4 H (11.5-14.5) % Plt Count 191 (140-400) K/mcL MPV 10.5 (9.4-12.4) fL PT (9.4-12.1) Seconds INR APTT (26.0-36.0) Seconds Sodium 142 (136-145) mEq/L Potassium 4.1 (3.5-5.1) mEq/L Chloride 103 (98-107) mEq/L Carbon Dioxide 30 H (23-29) mEq/L BUN 17 (8-23) mg/dL Creatinine 1.01 (0.60-1.20) mg/dL Est GFR ( Amer) > 60 (> 60) Est GFR (Non-Af Amer) 55 L (> 60) BUN/Creatinine Ratio 17 (6-26) Glucose 119 H (70-105) mg/dL POC Glucose 116 H (70-99) mg/dL Calculated Osmolality 297 (280-300) Calcium 9.4 (8.6-10.3) mg/dL Total Bilirubin 0.6 (0.3-1.0) mg/dL Direct Bilirubin 0.1 (0.0-0.2) mg/dL Indirect Bilirubin 0.5 (0.0-1.2) mg/dL AST 21 (13-39) Units/L ALT 37 (7-52) Units/L Alkaline Phosphatase 65 (34-104) Units/L Troponin I < 0.03 (< 0.04) ng/mL Serum Total Protein 6.1 L (6.4-8.9) g/dL Albumin 3.9 (3.5-5.7) g/dL Globulin 2.2 L (2.4-3.5) g/dL Albumin/Globulin Ratio 1.8 (1.1-2.2) Urine Color (Yellow) Urine Clarity (Clear) Urine pH (5.0-8.0) pH Units Ur Specific [place] (1.010-1.025) Urine Protein (Neg-Trace) mg/dL Urine Glucose (UA) (Normal) mg/dL Urine Ketones (Negative) mg/dL Urine Blood (Negative) Urine Nitrite (Negative) Urine Bilirubin (Negative) Urine Urobilinogen (Normal) mg/dL Ur Leukocyte Esterase (Negative) Ur Culture Indicated? (NO) 09/21/18 09/21/18 Range/Units 08:34 08:47 WBC (4.3-11.1) K/mcL RBC (3.82-4.97) M/mcL Hgb (11.5-15.4) g/dL Hct (35.3-44.9) % MCV (83.0-100.0) fL MCH (28.0-33.3) pg MCHC (31.6-35.5) g/dL RDW (11.5-14.5) % Plt Count (140-400) K/mcL MPV (9.4-12.4) fL PT 10.5 (9.4-12.1) Seconds INR 0.9 APTT 27.0 (26.0-36.0) Seconds Sodium (136-145) mEq/L Potassium (3.5-5.1) mEq/L Chloride (98-107) mEq/L Carbon Dioxide (23-29) mEq/L BUN (8-23) mg/dL Creatinine (0.60-1.20) mg/dL Est GFR ( Amer) (> 60) Est GFR (Non-Af Amer) (> 60) BUN/Creatinine Ratio (6-26) Glucose (70-105) mg/dL POC Glucose (70-99) mg/dL Calculated Osmolality (280-300) Calcium (8.6-10.3) mg/dL Total Bilirubin (0.3-1.0) mg/dL Direct Bilirubin (0.0-0.2) mg/dL Indirect Bilirubin (0.0-1.2) mg/dL AST (13-39) Units/L ALT (7-52) Units/L Alkaline Phosphatase (34-104) Units/L Troponin I (< 0.04) ng/mL Serum Total Protein (6.4-8.9) g/dL Albumin (3.5-5.7) g/dL Globulin (2.4-3.5) g/dL Albumin/Globulin Ratio (1.1-2.2) Urine Color Yellow (Yellow) Urine Clarity Clear (Clear) Urine pH 7.0 (5.0-8.0) pH Units Ur Specific [place] < 1.005 L (1.010-1.025) Urine Protein Negative (Neg-Trace) mg/dL Urine Glucose (UA) Normal (Normal) mg/dL Urine Ketones Negative (Negative) mg/dL Urine Blood Negative (Negative) Urine Nitrite Negative (Negative) Urine Bilirubin Negative (Negative) Urine Urobilinogen Normal (Normal) mg/dL Ur Leukocyte Esterase Negative (Negative) Ur Culture Indicated? NO (NO) - Radiology Data Radiology results reviewed: Yes I reviewed the patient's radiology results. Chest X-Ray 09/21/18 08:38 IMPRESSION: No acute cardiopulmonary disease. D/ / 09/21/2018 10:12:15 Uvaldo Awan MD / iker Interpreting Provider: Uvaldo Awan MD Head CT 09/21/18 08:39 IMPRESSION: 1. No acute intracranial abnormality. 2. Stable chronic lacunar infarcts within the bilateral basal ganglia and bilateral thalami. 3. Stable age-appropriate atrophy and chronic small vessel ischemic white matter disease. D/ / 09/21/2018 09:41:52 Uvaldo Awan MD / iker Interpreting Provider: Uvaldo Awan MD Brain MRI 09/21/18 12:52 IMPRESSION: 1. No acute intracranial abnormality. 2. Diffuse parenchymal volume loss with severe chronic white matter microvascular ischemic changes. 3. Remote lacunar infarcts in the bilateral basal ganglia and thalami. D/ / Yousuf Nolan / Yousuf Nolan Interpreting Provider: Yousuf Nolan - EKG Data EKG #1 EKG attestation: Yes I reviewed and interpreted this EKG. EKG results narrative: EKG done at 8:35 shows sinus rhythm at a rate of 81 bpm. Normal axis. Intervals within normal limits. No signs of ST elevation, ST depression. No new changes when compared to old EKG performed in August 2018 Attestation Statement - Attestation Attestation: I, Josh Spain, examined this patient and my medical decision-making was reviewed with the POLISHING PAD MOUNTER/PA/Advanced Practice Nurse/Resident Physician. I agree with the documented findings, disposition and treatment plan as described except to the extent set forth below. 63-year-old female presents emergency Department with concerns of left facial paresthesias. Patient states she has had these symptoms in the past after having CVA however they worsened significantly this morning. Patient reports concerns of hypertensive emergency in the past. She does have an elevated blood pressure the emergency department. CT of the head did not show evidence of acute intracranial hemorrhage or mass. She was given antihypertensives for t reatment of her elevated blood pressure. She will be admitted to the hospitalist for further care and evaluation.
[2018-09-21] MEDS ORDERED: *HR* Labetalol 20 MG/4 ML SYRINGE IVP STA (09:48)
[2018-09-21 09:50] LABS: Troponin I < 0.03 ng/mL (< 0.04)
[2018-09-21] MEDS ORDERED: Ondansetron 4 MG/2 ML VIAL IVP PRN (12:47)
[2018-09-21] MEDS ORDERED: Naloxone 0.4 MG/ML INJ IVP PRN (12:47)
[2018-09-21] MEDS ORDERED: Acetaminophen 325 MG TABLET PO PRN (12:47)
[2018-09-21] MEDS ORDERED: *HR* HYDROcodone/Acet 5/325 mg TABLET PO PRN (12:47)
--- NOTE | 2018-09-21 13:53 | Electrocardiograph Report ---
[address] [place], [place] [address] Test Date: 2018-09-21 Pat Name: Ana Maria Copeland Department: EXAM4 Room: 3B33 Gender: F Design Analyst: : 1955 Requested By: Ousmane Douglas Order Number: [id number] Reading MD: Curt Alford Measurements Intervals [place] Rate: 81 P: 35 MI: 123 QRS: -1 QRSD: 74 T: 57 QT: 379 QTc: 440 Interpretive Statements Sinus rhythm Minimal ST depression, lateral leads Electronically Signed On 09-21-2018 13:52:16 EDT by Curt Alford
--- NOTE | 2018-09-21 15:38 | Internal Med History&Physical ---
Date of Encounter: 09/21/18 Time of Encounter: 13:15 Internal Medicine - H&P: HPI Chief complaint: facial numbness / Left leg weakness Admitted From: Emergency Dept Plans for Post Hospital Care: Home History of present illness: Ms. Copeland is a 63 year old female with history of CVA, chronic left facial droop and hypertension pt presented to ED for a two day history of left leg weakness and worsening Left facial droop. Pt was just d/c d from our hospital 5 days ago, now she back to ER with uncontrolled BP and worsening Left facial droop , as well as new left leg weakness. She denied any speech difficulty. Pt stated she still has weakness in left leg. Past Med Surg Social Fam HX - Past Medical History Medical history: CVA, hyperlipidemia, hypertension Additional medical history: no deficits from CVA Psychiatric history: no psych history - Past Surgical History Additional surgical history: left hip. Ankle surgery - Social History Smoking Status: Former smoker Smokeless Tobacco Status: No Alcohol use: none Drug use: none - Family History Mother Hx Family Cardiac Disorders: Yes (CAD) - Additional Family History Additional family history: Family hsitory reviewed and non contribuitory to current problem. Internal Medicine - H&P: Meds BuPROPion XL (24 HR) [Wellbutrin Xl] 150 mg PO DAILY 09/12/18 [History] Calcium Carbonate [Calcium] 500 mg PO DAILY 09/12/18 [History] Cholecalciferol (Vitamin D3) [Vitamin D3] 2,000 unit PO DAILY 09/12/18 [History] amLODIPine [Norvasc] 5 mg PO DAILY 09/12/18 [History] cloNIDine HCl [CloNIDine HCl] 0.05 mg PO 1200 09/12/18 [History] cloNIDine HCl [CloNIDine HCl] 0.1 mg PO BID 09/12/18 [History] Aspirin [Adult Aspirin Regimen] 81 mg PO DAILY 09/13/18 [History] Atorvastatin Calcium [Lipitor] 80 mg PO HS 09/13/18 [History] Glucosamine Sulfate Dipot Chlr [Glucosamine] 1,000 mg PO DAILY 09/13/18 [History] hydrOXYzine HCl [Hydroxyzine HCl] 25 - 50 mg PO Q6H PRN 09/13/18 [History] Lisinopril [Zestril] 20 mg PO DAILY #30 tablet 07/25/19 [Rx] Allergy/AdvReac Type Severity Reaction Status Date / Time No Known Allergies Allergy Verified 09/13/18 17:39 All Systems PM: A 10-system review of systems was performed and is negative for pertinent findings except as documented above in the HPI. Review of systems: All the systems are reviewed everything is benign except the systems and symptoms I mentioned in the history of present illness - Constitutional Vitals: Temp Pulse Resp BP Pulse Ox 97.9 F 66 16 154/99 95 09/21/18 12:59 09/21/18 12:59 09/21/18 12:59 09/21/18 12:59 09/21/18 12:59 General appearance: Present: A&O X 3, no acute distress, answers questions appropriately Exam: a - Head Head exam: Present: atraumatic Additional comments: Left facial droop - Neck Neck exam general surgery: Present: supple. Absent: tenderness - Respiratory Respiratory exam: Present: decreased breath sounds. Absent: rales, respiratory distress, rhonchi, wheezes - Cardiovascular Cardiovascular exam: Present: RRR, +S1, +S2. Absent: tachycardia - GI/Abdominal GI/Abdominal exam: Present: normal bowel sounds, soft. Absent: distended, guar ding, rebound, rigid, tenderness - Extremities Exam Extremities exam: Present: normal inspection. Absent: calf tenderness, pedal edema, tenderness - Back Exam Back exam: Absent: CVA tenderness (L), CVA tenderness (R) - Neurological Exam Neurological exam: Present: alert, oriented X3, reflexes normal, strengths equal and symetr throughout, facial droop (left). Absent: motor sensory deficit, pronater drift, speech deficit - Psychiatric Psychiatric exam: Present: normal affect, normal mood - Skin Skin exam: Absent: rash Internal Med - H&P Results - Labs CBC & Chem 7: 09/21/18 08:34 09/21/18 08:34 Labs: Short CBC 09/21/18 Range/Units 08:34 WBC 8.9 (4.3-11.1) K/mcL Hgb 14.2 (11.5-15.4) g/dL Hct 45.1 H (35.3-44.9) % Plt Count 191 (140-400) K/mcL BMP 09/21/18 08:34 Sodium 142 Potassium 4.1 Chloride 103 Carbon Dioxide 30 H BUN 17 Creatinine 1.01 Glucose 119 H Calcium 9.4 Cardiac Enzymes 09/21/18 Range/Units 08:34 Troponin I < 0.03 (< 0.04) ng/mL Liver Function 09/21/18 Range/Units 08:34 Total Bilirubin 0.6 (0.3-1.0) mg/dL Direct Bilirubin 0.1 (0.0-0.2) mg/dL AST 21 (13-39) Units/L ALT 37 (7-52) Units/L Alkaline Phosphatase 65 (34-104) Units/L Albumin 3.9 (3.5-5.7) g/dL Urine 09/21/18 Range/Units 08:47 Urine Color Yellow (Yellow) Urine Clarity Clear (Clear) Urine pH 7.0 (5.0-8.0) pH Units Ur Specific [place] < 1.005 L (1.010-1.025) Urine Protein Negative (Neg-Trace) mg/dL Urine Glucose (UA) Normal (Normal) mg/dL - Impressions ITS Impressions Chest X-Ray 09/21/18 08:38 IMPRESSION: No acute cardiopulmonary disease. D/ / 09/21/2018 10:12:15 Uvaldo Awan MD / iker Interpreting Provider: Uvaldo Awan MD Head CT 09/21/18 08:39 IMPRESSION: 1. No acute intracranial abnormality. 2. Stable chronic lacunar infarcts within the bilateral basal ganglia and bilateral thalami. 3. Stable age-appropriate atrophy and chronic small vessel ischemic white matter disease. D/ / 09/21/2018 09:41:52 Uvaldo Awan MD / iekr Interpreting Provider: Uvaldo Awan MD Brain MRI 09/21/18 12:52 IMPRESSION: 1. No acute intracranial abnormality. 2. Diffuse parenchymal volume loss with severe chronic white matter microvascular ischemic changes. 3. Remote lacunar infarcts in the bilateral basal ganglia and thalami. D/ / Yousuf Nolan / Yousuf Nolan Interpreting Provider: Yousuf Nolan - Assessment and Plan (1) Left-sided weakness Current Visit: No Status: Acute Assessment and plan: Place the pt into Tele for observation Will do neuro checks Q 4 hour reviewed EKG by myself- showed normal sinus rhythm reviewed CT of the head no acute intracranial abnormality noticed Cont aspirin 81 mg PO daily will check lipid profile in the morning continue Lipitor 80 mg Ordered MRI of Brain He recently had Carotid doppler and 2 D echo which were essentially normal. Her symptoms seems to be due to anxiety too started her on Ativan PRN (2) Facial numbness Current Visit: Yes Status: Acute Assessment and plan: as above (3) Hypertensive emergency Current Visit: Yes Status: Acute Assessment and plan: She does have uncontrolled BP Resumed home meds Started her on Hydralzine PRN cont close monitoring for now (4) Anxiety Current Visit: Yes Status: Acute Assessment and plan: She does have significant anxiety started her on Ativan PRN - Time Spent With Patient Total time spent is greater than 50% in coordination of care (as documented) at patient's floor/unit and/or counseling patient:
[2018-09-21] MEDS: BuPROPion XL (24 HR) 150 MG TABLET PO SCH (16:54)
[2018-09-21] MEDS: amLODIPine 5 MG TABLET PO SCH (16:54)
[2018-09-21] MEDS: Lisinopril 20 MG TABLET PO SCH (16:55)
[2018-09-21] MEDS: *HR* LORazepam 0.5 MG TABLET PO PRN (18:55)
[2018-09-21] MEDS: cloNIDine HCl 0.1 MG TABLET PO SCH (21:44)
[2018-09-22 03:11] LABS: Chol/HDL Ratio 2.7 (0-4.9)
[2018-09-22] MEDS: *HR* LORazepam 0.5 MG TABLET PO PRN (05:51)
[2018-09-22 07:10] VITALS: BP 141/94
[2018-09-22] MEDS: Lisinopril 20 MG TABLET PO SCH (08:00)
[2018-09-22] MEDS: amLODIPine 5 MG TABLET PO SCH (08:00)
[2018-09-22] MEDS: BuPROPion XL (24 HR) 150 MG TABLET PO SCH (08:00)
[2018-09-22] MEDS: cloNIDine HCl 0.1 MG TABLET PO SCH (08:00)
[2018-09-22] MEDS ORDERED: Aspirin Enteric Coated 81 MG Tablet PO SCH (09:00)
[2018-09-22] MEDS ORDERED: Cholecalciferol (D-3) 1,000 UNIT (25MCG) TABLET PO SCH (09:00)
--- NOTE | 2018-09-22 11:11 | Discharge Summary ---
- NOTES TO OUTPATIENT PROVIDER Notes to Outpatient Provider: f/u with PCP in one week. f/u wiht Neurology in 1-2 weeks. Date of Encounter: 09/22/18 Time of Encounter: 11:08 - Discharge Diagnosis (1) Hypertensive emergency Priority: Primary Status: Acute (2) Anxiety Priority: Primary Status: Acute (3) Left-sided weakness Priority: Secondary Status: Chronic (4) Facial numbness Priority: Secondary Status: Chronic Hospital course: Ms. Copeland is a 63 year old female with history of CVA, chronic left facial droop and hypertension pt presented to ED for a two day history of left leg weakness and worsening Left facial droop. Pt was just d/c d from our hospital 5 days ago, now she was back to ER with uncontrolled BP and worsening Left facial droop , as well as new left leg weakness. She denied any speech difficulty. Pt stated she still has weakness in left leg. Her CT of head did not show any acute abnormalities. She was admitted in the hospital and placed her on tele. She did go for another MRI of Brain which did not show any acute infarction / no acute abnormality noticed. Pt symptoms seems to be due to anxiety. I started her on Ativan, which seems to be helped her. Pt stated she got a good sleep last night and feeling better today. Will d/c her home in stable condition today with home health. - Time Spent with Patient Total time spent providing and/or coordinating discharge services: - Discharge Medications Prescriptions: New LORazepam [Ativan] 0.5 mg PO BID PRN 5 Days #10 tablet PRN Reason: Anxiety Continued BuPROPion XL (24 HR) [Wellbutrin Xl] 150 mg PO DAILY amLODIPine [Norvasc] 5 mg PO DAILY cloNIDine HCl [CloNIDine HCl] 0.1 mg PO BID Calcium Carbonate [Calcium] 500 mg PO DAILY Cholecalciferol (Vitamin D3) [Vitamin D3] 2,000 unit PO DAILY cloNIDine HCl [CloNIDine HCl] 0.05 mg PO 1200 Aspirin [Adult Aspirin Regimen] 81 mg PO DAILY Atorvastatin Calcium [Lipitor] 80 mg PO HS Glucosamine Sulfate Dipot Chlr [Glucosamine] 1,000 mg PO DAILY hydrOXYzine HCl [Hydroxyzine HCl] 25 - 50 mg PO Q6H PRN PRN Reason: Anxiety Lisinopril [Zestril] 20 mg PO DAILY #30 tablet Home Medications: BuPROPion XL (24 HR) [Wellbutrin Xl] 150 mg PO DAILY 09/12/18 [History] Calcium Carbonate [Calcium] 500 mg PO DAILY 09/12/18 [History] Cholecalciferol (Vitamin D3) [Vitamin D3] 2,000 unit PO DAILY 09/12/18 [History] amLODIPine [Norvasc] 5 mg PO DAILY 09/12/18 [History] cloNIDine HCl [CloNIDine HCl] 0.05 mg PO 1200 09/12/18 [History] cloNIDine HCl [CloNIDine HCl] 0.1 mg PO BID 09/12/18 [History] Aspirin [Adult Aspirin Regimen] 81 mg PO DAILY 09/13/18 [History] Atorvastatin Calcium [Lipitor] 80 mg PO HS 09/13/18 [History] Glucosamine Sulfate Dipot Chlr [Glucosamine] 1,000 mg PO DAILY 09/13/18 [History] hydrOXYzine HCl [Hydroxyzine HCl] 25 - 50 mg PO Q6H PRN 09/13/18 [History] Lisinopril [Zestril] 20 mg PO DAILY #30 tablet 09/14/18 [Rx] LORazepam [Ativan] 0.5 mg PO BID PRN 5 Days #10 tablet 09/22/18 [Rx] Allergies/Adverse Reactions: Allergy/AdvReac Type Severity Reaction Status Date / Time No Known Allergies Allergy Verified 09/13/18 17:39 Date of admission: 09/21/18 12:18 Primary care physician: Philip Wills Colopy - Constitutional Vitals: Temp Pulse Resp BP Pulse Ox 97.4 F L 71 16 141/94 98 09/22/18 07:09 09/22/18 07:09 09/22/18 07:09 09/22/18 07:09 09/22/18 07:09 General appearance: Present: A&O X 3, no acute distress, answers questions appropriately Exam: Gen: Alert, awake, Oriented to time,place and person Chest: Diminished breath sounds B/L, No wheezing, No crackles, No rales Heart: S1S2+ RRR No murmurs Abd: Soft, NT, BS +, No organomegaly Ext: No edema, pulses are palpable, No calf tenderness Neuro : Chronic left facial numbness. No weakness noticed in extremities . Skin: No rash. - Patient Status Disposition: Home Health Service Condition: Good Overall status at discharge: patient is back to baseline - Discharge Instructions Follow Up With: Philip Solares DO [Primary Care Provider] - Juan J Amado DO [Partnered Physician] - - Diet and Activity Activity: increase activity as tolerated Diet: low salt diet
--- NOTE | 2018-09-22 11:14 | Physician Discharge Referral ---
Home Health/Hosp Referral Info Transfer to: Home Health Provider in Charge Post Discharge: PCP - Diagnosis (1) Hypertensive emergency Status: Acute (2) Anxiety Status: Acute (3) Left-sided weakness Status: Chronic (4) Facial numbness Status: Chronic - Respiratory Orders Smoking Cessation: Smoking cessation has been advised. For more information, call the [place] Tobacco Quit Line at 7-896-CKOE-NOW. - Services Needed Following services are medically necessary services: Nursing, Physical Therapy, Occupational Therapy - Transfer Medications Prescriptions: LORazepam [Ativan] 0.5 mg PO BID PRN 5 Days #10 tablet PRN Reason: Anxiety Home Medications: BuPROPion XL (24 HR) [Wellbutrin Xl] 150 mg PO DAILY 09/12/18 [History] Calcium Carbonate [Calcium] 500 mg PO DAILY 09/12/18 [History] Cholecalciferol (Vitamin D3) [Vitamin D3] 2,000 unit PO DAILY 09/12/18 [History] amLODIPine [Norvasc] 5 mg PO DAILY 09/12/18 [History] cloNIDine HCl [CloNIDine HCl] 0.05 mg PO 1200 09/12/18 [History] cloNIDine HCl [CloNIDine HCl] 0.1 mg PO BID 09/12/18 [History] Aspirin [Adult Aspirin Regimen] 81 mg PO DAILY 09/13/18 [History] Atorvastatin Calcium [Lipitor] 80 mg PO HS 09/13/18 [History] Glucosamine Sulfate Dipot Chlr [Glucosamine] 1,000 mg PO DAILY 09/13/18 [History] hydrOXYzine HCl [Hydroxyzine HCl] 25 - 50 mg PO Q6H PRN 09/13/18 [History] Lisinopril [Zestril] 20 mg PO DAILY #30 tablet 09/14/18 [Rx] LORazepam [Ativan] 0.5 mg PO BID PRN 5 Days #10 tablet 09/22/18 [Rx] Allergies/Adverse Reactions: Allergy/AdvReac Type Severity Reaction Status Date / Time No Known Allergies Allergy Verified 09/13/18 17:39 Certification: Further, I certify that my clinical findings support that this patient is homebound (i.e. absences from home require considerable and taxing effort and are for medical reasons or temple services or infrequently or short duration when for other reasons) because: Homebound Reason: Patient requires assistance of a person or device to safely leave home Attestation: My signature below is to certify that this patient is under my care and that I, or nurse practitioner, or a physician's registered nurse first assistant working with me, has a [id number] encounter with this patient.
== END 2018-09-22 12:18 | disposition home health service (06) ==
LOC: 3BNU 08:26 → EMEROOARM 08:26 → SUATTDRO 12:18 → 3BNU 13:46
PROVIDERS: ADMIT Student in an Organized Health Care Education/Training Program; ATTEND Family Medicine

== ENCOUNTER 2018-10-21 11:41 | Observation (INO) ==
--- NOTE | 2018-10-21 11:59 | Emergency Department Note ---
Disposition Clinical Impression: Chest pain Disposition: Admitted As Inpatient Condition: Good Time of Disposition: 13:54 General Adult HPI - General Chief complaint: ED Weakness Stated complaint: hypertension Time Seen by Provider: 10/21/18 11:44 Source: family, EMS Mode of arrival: EMS Limitations: no limitations Nursing Notes Reviewed: Yes Vital Signs Reviewed: Yes - History of Present Illness HPI Narrative: 63-year-old female with past medical history of hypertension, shortness of breath, possible kidney problems that was seen by her primary care physician yesterday for labile blood pressures. No changes were made to her medication at that time. Her doctor would like her to see a dragline engineer, this appointment is scheduled at [place] in November. Patient states that her blood pressure was high this morning, she states her blood pressure has not been well controlled f or the last several months. When asked what made her come to the emergency department today she states that she is just tired of feeling this way. Patient is also endorsing some shortness of breath that she has had for months. Pain Scale: 0 - Related Data Home Medications Medication Instructions Recorded Confirmed Calcium Carbonate [Calcium] 500 mg PO DAILY 09/12/18 10/21/18 Cholecalciferol (Vitamin D3) 2,000 unit PO DAILY 09/12/18 10/21/18 [Vitamin D3] amLODIPine [Norvasc] 5 mg PO DAILY 09/12/18 10/21/18 cloNIDine HCl [CloNIDine HCl] 0.05 mg PO 1200 09/12/18 10/21/18 cloNIDine HCl [CloNIDine HCl] 0.1 mg PO BID 09/12/18 10/21/18 Aspirin [Adult Aspirin Regimen] 81 mg PO DAILY 09/13/18 10/21/18 Atorvastatin Calcium [Lipitor] 80 mg PO HS 09/13/18 10/21/18 Glucosamine Sulfate Dipot Chlr 1,000 mg PO DAILY 09/13/18 10/21/18 [Glucosamine] hydrOXYzine HCl [Hydroxyzine HCl] 25 - 50 mg PO Q6H PRN 09/13/18 10/21/18 LORazepam [Ativan] 0.5 mg PO TID 10/21/18 10/21/18 Previous Rx's Medication Instructions Recorded Lisinopril [Zestril] 20 mg PO DAILY #30 tablet 09/14/18 Allergies Allergy/AdvReac Type Severity Reaction Status Date / Time No Known Allergies Allergy Verified 09/13/18 17:39 Review of Systems: In addition to that documented in the HPI above, the additional ROS was obtained: Constitutional: Denies fevers or chills Eyes: Denies vision changes ENMT: Denies sore throat CV: Denies chest pain Resp: Reports chronic SOB GI: Denies vomiting or diarrhea : Denies painful urination MSK: Denies recent trauma Skin: Denies new rashes Reports chronic dry skin Neuro: Denies new numbness or tingling or weakness Endocrine: Denies unexpected weight loss Heme: Denies bleeding disorders Past Medical History - Past Medical History Attestation: Yes The following information was validated with the patient. Medical history: Reports: CVA, hyperlipidemia, hypertension Surgical history: Reports: hysterectomy Psychiatric history: Reports: no psych history - Social History Smoking Status: Former smoker Smokeless Tobacco Status: No Alcohol use: Reports: none Drug use: Reports: none Physical Exam General: A&O x 3. No acute distress. Tearful. Well developed, well nourished. Head: atraumatic, normocephalic. ENT: No conjunctival injection, no scleral icterus. PERRLA. EOMI. Oropharynx non- erythematous. mucous membranes moist. Neuro: No focal deficits, no speech deficit, no facial droop, mentating well. Pulm: Lungs CTAB A/P. No wheezes, rales, ronchi. Cardio: RRR no m/r/g. Chest not tender to palpation. Abd: Soft, non-distended. Normoactive bowel sounds. Non-tender to palpation. No guarding. Non rigid. Extremities: Radial pulses 2+ manuel, dorsalis pedis/posterior tibialis 2+ manuel. No LE edema. No cyanosis, clubbing. Skin: Diffusely dry with flaking skin over all extremities. Psych: Appropriate mood and affect. Answers questions appropriately. Cooperative with exam. - General Limitations: no limitations General appearance: alert Course Vital Signs Temperature 97.9 F 10/21/18 11:47 Pulse Rate 98 10/21/18 11:47 Respiratory Rate 18 10/21/18 11:47 Blood Pressure 156/112 10/21/18 11:47 O2 Sat by Pulse Oximetry 100 10/21/18 11:47 Temperature 97.9 F 10/21/18 11:47 Pulse Rate 93 10/21/18 13:23 Respiratory Rate 17 10/21/18 13:23 Blood Pressure 133/88 10/21/18 13:23 O2 Sat by Pulse Oximetry 109 10/21/18 13:23 Oxygen Delivery Oxygen Delivery Room Air Medical Decision Making - MDM Narrative Medical decision making narrative: 63-year-old female that presents with concern for chronic hypertension and shortness of breath. Patient is hoping that we can help her feel "not this way" that she has been feeling for months. Pt was informed that we are unlikely to be able to make significant changes today, but we will check for end-organ damage from her chronic HTN. Will obtain CXR, EKG, CBC, BMP, UA. 1318: When the patient spoke with my attending Dr. Josh enriquez she admitted that she also had chest pain which started this morning. They chest pain is described as a dull ache without radiation. She also states that she feels weak and fatigued. Will admit the patient to the hospitalist for cardiac workup. 1355: Pt was admitted to Dr. Meza, hospitalist, who agreed to accept the pt to her service. Heart score of 4. No increase in symptoms while she was in the department. Results of the workup including any imaging and/or labwork was shared with the patient at bedside. Patient was given an opportunity to ask questions at bedside and all of their concerns were addressed. Patient verbalized understanding and agreement with plan of care. Pt remained stable while in the department. - Medical Records Medical records reviewed: Yes I reviewed the patient's medical records. - Lab Data Lab results reviewed: Yes I reviewed the patient's lab results. Result diagrams: 10/21/18 12:03 10/21/18 12:03 Lab Results 10/21/18 10/21/18 10/21/18 Range/Units 12:03 12:03 12:20 WBC 11.8 H (4.3-11.1) K/mcL RBC 5.20 H (3.82-4.97) M/mcL Hgb 14.9 (11.5-15.4) g/dL Hct 47.0 H (35.3-44.9) % MCV 90.4 (83.0-100.0) fL MCH 28.7 (28.0-33.3) pg MCHC 31.7 (31.6-35.5) g/dL RDW 16.4 H (11.5-14.5) % Plt Count 234 (140-400) K/mcL MPV 9.8 (9.4-12.4) fL Immature Gran % 0.9 (0-4) % Seg Neutrophils % 68.0 % Lymphocytes % 20.5 % Monocytes % 9.5 % Eosinophils % 0.5 % Basophils % 0.6 % Neutrophils # 8.0 (1.6-8.9) K/mcL Lymphocytes # 2.4 (0.6-4.6) K/mcL Monocytes # 1.1 (0.0-1.3) K/mcL Eosinophils # 0.1 (0.0-0.6) K/mcL Basophils # 0.1 (0.0-0.2) K/mcL Nucleated RBCs/100 WBC 0.2 H (0) /100 WBC Sodium 145 (136-145) mEq/L Potassium 3.6 (3.5-5.1) mEq/L Chloride 108 H (98-107) mEq/L Carbon Dioxide 25 (23-29) mEq/L BUN 21 (8-23) mg/dL Creatinine 0.98 (0.60-1.20) mg/dL Est GFR ( Amer) > 60 (> 60) Est GFR (Non-Af Amer) 57 L (> 60) BUN/Creatinine Ratio 21 (6-26) Glucose 122 H (70-105) mg/dL Calculated Osmolality 304 H (280-300) Calcium 9.4 (8.6-10.3) mg/dL Troponin I < 0.03 (< 0.04) ng/mL Urine Color Yellow (Yellow) Urine Clarity Slightly Hazy (Clear) Urine pH 6.0 (5.0-8.0) pH Units Ur Specific [place] 1.018 (1.010-1.025) Urine Protein Negative (Neg-Trace) mg/dL Urine Glucose (UA) Normal (Normal) mg/dL Urine Ketones Negative (Negative) mg/dL Urine Blood Negative (Negative) Urine Nitrite Negative (Negative) Urine Bilirubin Negative (Negative) Urine Urobilinogen Normal (Normal) mg/dL Ur Leukocyte Esterase Trace H (Negative) Urine Microscopic RBC 0-3 (0-3) per hpf Urine Microscopic WBC 3-5 H (0-3) per hpf Ur Squamous Epith Cells Many H (None-Few) per lpf Urine Bacteria Few (None-Few) per hpf Hyaline Casts None Seen (None-Few) per lpf Ur Culture Indicated? YES A (NO) - Radiology Data Radiology results reviewed: Yes I reviewed the patient's radiology results. Chest X-Ray 10/21/18 11:55 IMPRESSION: No acute process. D/ / Néstor Cleary MD / Néstor Cleary MD Interpreting Provider: Néstor Cleary MD - EKG Data EKG #1 EKG attestation: Yes I reviewed and interpreted this EKG. EKG results narrative: Heart rate 100, rhythm sinus tachycardia, axis left. Intervals within normal limits. Less than [address] depression noted in leads V3, V4, V5. Baseline wander in lead V6. Attestation Statement - Attestation Attestation: I, Josh Spain, examined this patient and my medical decision-making was reviewed with the VOCATIONAL AIDE/PA/Advanced Practice Nurse/Resident Physician. I agree with the documented findings, disposition and treatment plan as described except to the extent set forth below. 63-year-old female presents emergency Department with concerns of high blood pressure, chest pain, weakness, fatigue. Patient noted symptoms started this morning. She does have a history of high blood pressure and is currently in the process of following up with her primary care provider and a dragline engineer. Patient's takes clonidine and lisinopril and has not missed any of her medications. Patient denies fever, chills, nausea, vomiting, diarrhea, diaphoresis. Patient notes to have chest pain which started this morning and describes a dull aching pain in center of her chest that does not radiate. Patient has never had a cardiac evaluation before. Patient denies abdominal pain, hematochezia, melena. Initial troponin negative. EKG did not show evidence of STEMI. I reviewed the EKG with the resident and agree with the interpretation. Patient will be admitted to the hospitalist for further care and evaluation. Heart Score - Score History: Moderately Suspicious EKG: Non Specific repolarisation Disturbance Age: 45-65 Risk Factors: 1-2 risk factors Troponin: Less than normal limit HEART Score Total: 4
[2018-10-21 12:23] LABS: Basophils # 0.1 K/mcL (0.0-0.2); Basophils % 0.6 %; Eosinophils # 0.1 K/mcL (0.0-0.6); Eosinophils % 0.5 %; Hemoglobin 14.9 g/dL (11.5-15.4); Immature Granulocytes % 0.9 % (0-4); Lymphocytes # 2.4 K/mcL (0.6-4.6); Lymphocytes % 20.5 %; Mean Corpuscular HGB Conc 31.7 g/dL (31.6-35.5); Mean Corpuscular Hemoglobin 28.7 pg (28.0-33.3); Mean Corpuscular Volume 90.4 fL (83.0-100.0); Mean Platelet Volume 9.8 fL (9.4-12.4); Monocytes # 1.1 K/mcL (0.0-1.3); Monocytes % 9.5 %; Nucleated Red Blood Cells 0.2 /100 WBC (0); Platelet Count 234 K/mcL (140-400); Red Cell Distribution Width 16.4 % (11.5-14.5); White Blood Count 11.8 K/mcL (4.3-11.1)
[2018-10-21 12:33] LABS: Bilirubin,Urine Negative (Negative); Blood,Urine Negative (Negative); Color,Urine Yellow (Yellow); Glucose,Urine (UA) Normal (Normal); Ketones,Urine Negative (Negative); Leukocyte Esterase,Urine Trace (Negative); Nitrite,Urine Negative (Negative); Protein,Urine Negative (Neg-Trace); Specific Gravity,Urine 1.018 (1.010-1.025); Urobilinogen,Urine Normal (Normal)
[2018-10-21 12:36] LABS: Bacteria,Urine Few per hpf (None-Few); Hyaline Casts,Urine None Seen per lpf (None-Few); RBC,Urine 0-3 per hpf (0-3); Squamous Epithelial Cell,Urine Many per lpf (None-Few)
[2018-10-21 12:37] LABS: Clarity,Urine Slightly Hazy (Clear)
[2018-10-21 12:44] LABS: BUN/Creatinine Ratio 21 (6-26); Blood Urea Nitrogen 21 mg/dL (8-23); Calcium 9.4 mg/dL (8.6-10.3); Carbon Dioxide 25 mEq/L (23-29); Chloride 108 mEq/L (98-107); Glucose 122 mg/dL (70-105); Osmolality,Calculated 304 (280-300); Potassium 3.6 mEq/L (3.5-5.1); Sodium 145 mEq/L (136-145); eGFR For African Americans > 60 (> 60); eGFR For Non-African Americans 57 (> 60)
[2018-10-21 12:45] LABS: Troponin I < 0.03 ng/mL (< 0.04)
[2018-10-21] MEDS ORDERED: Aspirin 81 MG TAB.CHEW PO ONE (12:58)
[2018-10-21] MEDS: Nitroglycerin 0.4 MG TAB.SUBL SL PRN ×3 (13:09→13:23)
--- NOTE | 2018-10-21 14:52 | Internal Med History&Physical ---
Date of Encounter: 10/21/18 Time of Encounter: 14:48 Internal Medicine - H&P: HPI Chief complaint: Chest pain Admitted From: Home Plans for Post Hospital Care: Home History of present illness: Ms. Copeland is a 63 year old female past medical history of hypertension, TIA, shortness of breath presents to the emergency department complaining of dyspnea. Patient reports that just been started earlier this morning. Just been was 7 out of 10 in severity, substernal, nonradiating, aching and sharp in nature. Patient denied any aggravating and relieving factor for the chest pain. Patient denies any palpitation and diaphoresis. Patient reports that she also issues with blood pressure. Patient reports upper pressure is labile. She is currently on blood pressure medication. She reports that she went to see [facility] provider for blood pressure medication adjustment. However her medications were not adjusted. Patient denied any fever and chills. Patient denies any nausea, vomiting, abdomen pain, and diarrhea. Patient denied any tingling, numbness, and weakness. Upon presentation to the emergency department patient has a blood work, EKG, and chest x-ray done. Patient's troponin was negative. Patient's the previous count was 11.8. Patient's UA was positive for trace leukocyte. However patient is asymptomatic and she denied any particular and chills. Urine was not a clean catch. Chest x-ray was without any acute cardiopulmonary process. EKG showed sinus tachycardia at 100 bpm. ess than [address] depression noted in leads V3, V4, V5. Normal CO QRS and QTC duration. I personally reviewed the EKG. Patient received aspirin 1 in the emergency department. And nitroglycerin 0.4 mg 3. Patient reports nitroglycerin helped the chest pain. Past Med Surg Social Fam HX - Past Medical History Source: patient Medical history: hyperlipidemia, hypertension, TIA Additional medical history: no deficits from CVA Psychiatric history: no psych history - Past Surgical History Surgical History: hysterectomy, other (Left hip replacement surgery) Additional surgical history: left hip. Ankle surgery B/L. 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 - Social History Smoking Status: Former smoker Smokeless Tobacco Status: No Alcohol use: none Drug use: none - Family History Mother Hx Family Cardiac Disorders: Yes (CAD) Father Living Status: Hx Family Cancer: Yes (Lung) Internal Medicine - H&P: Meds Calcium Carbonate [Calcium] 500 mg PO DAILY 09/12/18 [History] Cholecalciferol (Vitamin D3) [Vitamin D3] 2,000 unit PO DAILY 09/12/18 [History] amLODIPine [Norvasc] 5 mg PO DAILY 09/12/18 [History] cloNIDine HCl [CloNIDine HCl] 0.05 mg PO 1200 09/12/18 [History] cloNIDine HCl [CloNIDine HCl] 0.1 mg PO BID 09/12/18 [History] Aspirin [Adult Aspirin Regimen] 81 mg PO DAILY 09/13/18 [History] Atorvastatin Calcium [Lipitor] 80 mg PO HS 09/13/18 [History] Glucosamine Sulfate Dipot Chlr [Glucosamine] 1,000 mg PO DAILY 09/13/18 [History] hydrOXYzine HCl [Hydroxyzine HCl] 25 - 50 mg PO Q6H PRN 09/13/18 [History] Lisinopril [Zestril] 20 mg PO DAILY #30 tablet 09/14/18 [Rx] LORazepam [Ativan] 0.5 mg PO TID 10/21/18 [History] Allergy/AdvReac Type Severity Reaction Status Date / Time No Known Allergies Allergy Verified 09/13/18 17:39 All Systems PM: A 10-system review of systems was performed and is negative for pertinent findings except as documented above in the HPI. - Constitutional Vitals: Temp Pulse Resp BP Pulse Ox 97.9 F 93 15 136/93 95 10/21/18 11:47 10/21/18 13:26 10/21/18 13:26 10/21/18 13:26 10/21/18 13:26 General appearance: Present: cooperative, A&O X 3 Exam: General: A & O 3, In no acute distress HENNT: PERRLA. Head atraumatic and makes supple Eye: no scleral icterus CVS S1 and S2 regular, no murmur RS: Clear to air entry bilaterally, no wheeze, no crackles Abdomen: Soft and nontender. Bowel sounds normal 4 Extremities: No cyanosis, clubbing, and edema, venous stasis bilaterally. Skin: Venous stasis rash and pigmentation bilaterally on lower extremity. Neurology: Cranial 2 through 12 normal. Motor strength 5/5 bilaterally. Sensation intact Internal Med - H&P Results - Labs CBC & Chem 7: 10/21/18 12:03 10/21/18 12:03 Labs: Short CBC 10/21/18 Range/Units 12:03 WBC 11.8 H (4.3-11.1) K/mcL Hgb 14.9 (11.5-15.4) g/dL Hct 47.0 H (35.3-44.9) % Plt Count 234 (140-400) K/mcL Neutrophils # 8.0 (1.6-8.9) K/mcL BMP 10/21/18 12:03 Sodium 145 Potassium 3.6 Chloride 108 H Carbon Dioxide 25 BUN 21 Creatinine 0.98 Glucose 122 H Calcium 9.4 Cardiac Enzymes 10/21/18 Range/Units 12:03 Troponin I < 0.03 (< 0.04) ng/mL Urine 10/21/18 Range/Units 12:20 Urine Color Yellow (Yellow) Urine Clarity Slightly Hazy (Clear) Urine pH 6.0 (5.0-8.0) pH Units Ur Specific Avery 1.018 (1.010-1.025) Urine Protein Negative (Neg-Trace) mg/dL Urine Glucose (UA) Normal (Normal) mg/dL - Impressions ITS Impressions Chest X-Ray 10/21/18 11:55 IMPRESSION: No acute process. D/ / Néstor Cleary MD / Néstor Cleary MD Interpreting Provider: Néstor Cleary MD - Assessment and Plan (1) Chest pain due to CAD Current Visit: Yes Status: Acute Assessment and plan: Patient is a 62-year-old female with past medical history of hypertension, former smoker, and TIA presents to the emergency department with complaint of chest pain substernal, 5-7 out of 10 in severity. Patient's initial workup shows EKG with minimal ST segment depression in V3 and V4 and V5. Chest x-ray without any acute cardiac or pulmonary process. Troponin 1 negative patient was given aspirin 3241 in the ED. Patient was given nitroglycerin 0.4 sublingual 3 in the emergency department. Telemetry O2 support Aspirin 81 mg daily Nitroglycerin 0.4 sublingual as needed Heparin drip Trend troponin Lipid panel in the morning. Nothing by mouth after midnight Echo in a.m. and stress test in a.m. (2) SOB (shortness of breath) Current Visit: Yes Status: Chronic Assessment and plan: She reports of chronic shortness of breath. Patient denied any history of COPD. Patient is ex-smoker. Patient has a minimal wheezing. We will place on DuoNeb breathing therapy as needed. Ventolin inhaler as needed. (3) TIA (transient ischemic attack) Current Visit: No Status: Chronic Assessment and plan: Continue aspirin and Lipitor. (4) Hypertension Current Visit: No Status: Chronic Assessment and plan: Continue Norvasc and lisinopril. We will continue to monitor. Qualifiers: Hypertension type: essential hypertension Qualified Code(s): I10 - Essential (primary) hypertension (5) DVT prophylaxis Current Visit: No Status: Acute Assessment and plan: Heparin drip. - Time Spent With Patient Total time spent is greater than 50% in coordination of care (as documented) at patient's floor/unit and/or counseling patient: Greater than 35 minutes
[2018-10-21] MEDS ORDERED: amLODIPine 5 MG TABLET PO SCH (15:00)
[2018-10-21] MEDS ORDERED: Ipratropium/Albuterol Neb 3 ML IH PRN (15:01)
[2018-10-21] MEDS ORDERED: Naloxone 0.4 MG/ML INJ IVP PRN (15:05)
[2018-10-21] MEDS ORDERED: Ondansetron 4 MG/2 ML VIAL IVP PRN (15:05)
[2018-10-21] MEDS ORDERED: Nitroglycerin 0.4 MG TAB.SUBL SL PRN (15:08)
[2018-10-21] MEDS ORDERED: 0.9 % Sodium Chloride 1,000 ML IVC SCH (15:15)
[2018-10-21] MEDS ORDERED: *HR* Heparin 5,000 UNIT/ML VIAL IVP ONE (15:35)
[2018-10-21] MEDS ORDERED: *HR* Heparin 5,000 UNIT/ML VIAL IVP PRN ×2 (15:35)
[2018-10-21] MEDS ORDERED: Heparin 25,000 UNIT/250 ML D5W 25,000 UNIT/250 ML IV.SOLN IVC SCH (15:45)
[2018-10-21] MEDS: Lisinopril 20 MG TABLET PO SCH (18:53)
[2018-10-22 00:42] LABS: Basophils # 0.1 K/mcL (0.0-0.2); Basophils % 0.5 %; Eosinophils # 0.1 K/mcL (0.0-0.6); Eosinophils % 0.6 %; Hematocrit 40.7 % (35.3-44.9); Hemoglobin 12.9 g/dL (11.5-15.4); Immature Granulocytes % 1.1 % (0-4); Lymphocytes # 1.9 K/mcL (0.6-4.6); Lymphocytes % 17.1 %; Mean Corpuscular HGB Conc 31.7 g/dL (31.6-35.5); Mean Corpuscular Hemoglobin 28.7 pg (28.0-33.3); Mean Corpuscular Volume 90.6 fL (83.0-100.0); Mean Platelet Volume 10.3 fL (9.4-12.4); Monocytes # 1.1 K/mcL (0.0-1.3); Monocytes % 9.6 %; Neutrophils # 7.9 K/mcL (1.6-8.9); Platelet Count 196 K/mcL (140-400); Red Blood Count 4.49 M/mcL (3.82-4.97); Red Cell Distribution Width 16.4 % (11.5-14.5); Segmented Neutrophils % 71.1 %; White Blood Count 11.2 K/mcL (4.3-11.1)
[2018-10-22 01:00] LABS: BUN/Creatinine Ratio 24 (6-26); Blood Urea Nitrogen 23 mg/dL (8-23); Calcium 8.6 mg/dL (8.6-10.3); Carbon Dioxide 23 mEq/L (23-29); Chloride 110 mEq/L (98-107); Chol/HDL Ratio 2.1 (0-4.9); Cholesterol 138 mg/dL (< 200); Glucose 151 mg/dL (70-105); HDL Cholesterol 67 mg/dL (40-59); LDL Cholesterol,Calculated 49 mg/dL (0-99); Osmolality,Calculated 299 (280-300); Potassium 3.5 mEq/L (3.5-5.1); Sodium 141 mEq/L (136-145); Triglycerides 111 mg/dL (< 150); eGFR For African Americans > 60 (> 60); eGFR For Non-African Americans > 60 (> 60)
[2018-10-22] MEDS ORDERED: Regadenoson 0.4 MG/5 ML SYRINGE IVP ONE (06:58)
[2018-10-22] MEDS: Aspirin 81 MG TAB.CHEW PO SCH (11:47)
[2018-10-22] MEDS: amLODIPine 5 MG TABLET PO SCH (11:47)
[2018-10-22] MEDS: Cholecalciferol (D-3) 1,000 UNIT (25MCG) TABLET PO SCH (11:47)
[2018-10-22] MEDS: Lisinopril 20 MG TABLET PO SCH ×2 (11:47→11:48)
--- NOTE | 2018-10-22 13:06 | Internal Med Progress Note ---
Hospitalist Progress Note - Encounter Date of Encounter: 10/22/18 Time of Encounter: 13:04 - Subjective Interval History: Patient was seen and examined at bedside today. Patient started complaining of left-sided facial numbness and slurred speech this morning. She denied any weakness. Patient denied any palpitation. Patient denied any vision changes. Patient denied any chest pain. - Exam Vitals: Temp Pulse Resp BP Pulse Ox 98.4 F 90 18 176/106 100 10/22/18 11:50 10/22/18 11:50 10/22/18 11:50 10/22/18 11:50 10/22/18 11:50 Exam: General: A & O 3, In no acute distress HENNT: PERRLA. Head atraumatic and makes supple Eye: no scleral icterus CVS S1 and S2 regular, no murmur RS: Clear to air entry bilaterally, no wheeze, no crackles Abdomen: Soft and nontender. Bowel sounds normal 4 Extremities: No cyanosis, clubbing, and edema, venous stasis bilaterally. Skin: Venous stasis rash and pigmentation bilaterally on lower extremity. Neurology: Cranial II - XII normal. Motor strength 4/5 bilaterally. Sensation intact, Reflex 1+ bilaterally. Left facial droop noted - Assessment and Plan (1) Facial droop Current Visit: Yes Status: Acute Assessment and Plan: Patient started complaining of facial droop on the left side and numbness. Patient also complaining of stye speech today. Patient has a history of TIA and CVA in the posterior. - Continue aspirin and statin - CT scan without contrast ordered a stat - EKG was done was normal sinus rhythm. EKG was unchanged from yesterday's EKG. EKG had minimal ST segment depression in V3 V4 and V5. - Echo done today pending report - Old records reviewed patient has a carotid duplex done in August 2018 which was without any significant obstruction, echo done in August was within normal limit. Patient's prostate MRI showed chronic microvascular ischemic changes. - We will place neurological consult. (2) Chest pain due to CAD Current Visit: Yes Status: Acute Assessment and Plan: She denied any chest pain this morning. Patient's troponin 3 is negative. Patient undergo echo and stress test today. Continue telemetry, heparin drip, and medical management including aspirin and statin. We will consider cardiology consult if echo or stress test is abnormal. (3) SOB (shortness of breath) Current Visit: Yes Status: Chronic Assessment and Plan: She reports of chronic shortness of breath. Patient denied any history of COPD. Patient is ex-smoker. Patient has a minimal wheezing. We will place on DuoNeb breathing therapy as needed. Ventolin inhaler as needed. (4) TIA (transient ischemic attack) Current Visit: No Status: Chronic Assessment and Plan: Continue aspirin and Lipitor. (5) Hypertension Current Visit: No Status: Chronic Assessment and Plan: Continue Norvasc and lisinopril. We will continue to monitor. (6) DVT prophylaxis Current Visit: No Status: Acute Assessment and Plan: Heparin drip. - Time Spent with Patient Total time spent is greater than 50% in coordination of care (as documented) at patient's floor/unit and/or counseling patient: 25 - 35 minutes Plan of Care Discussed with: patient Internal Medicine: Result - Labs CBC & Chem 7: 10/22/18 00:22 10/22/18 00:22 Labs: Short CBC 10/22/18 Range/Units 00:22 WBC 11.2 H (4.3-11.1) K/mcL Hgb 12.9 D (11.5-15.4) g/dL Hct 40.7 (35.3-44.9) % Plt Count 196 (140-400) K/mcL Neutrophils # 7.9 (1.6-8.9) K/mcL BMP 10/22/18 00:22 Sodium 141 Potassium 3.5 Chloride 110 H Carbon Dioxide 23 BUN 23 Creatinine 0.94 Glucose 151 H Calcium 8.6 Cardiac Enzymes 10/21/18 10/22/18 Range/Units 17:55 00:22 Troponin I < 0.03 < 0.03 (< 0.04) ng/mL Consult Discharge Plan - Plan Referrals: Philip Solares DO [Primary Care Provider] - (5) Hypertension Qualifiers: Hypertension type: essential hypertension Qualified Code(s): I10 - Essential (primary) hypertension
[2018-10-22] MEDS: cloNIDine HCl 0.1 MG TABLET PO SCH ×2 (14:16→20:33)
[2018-10-22] MEDS ORDERED: Acetaminophen 325 MG TABLET PO PRN (17:17)
[2018-10-23 02:28] LABS: Basophils # 0.1 K/mcL (0.0-0.2); Basophils % 0.7 %; Eosinophils % 0.3 %; Hematocrit 40.4 % (35.3-44.9); Hemoglobin 12.9 g/dL (11.5-15.4); Immature Granulocytes % 1.1 % (0-4); Lymphocytes % 19.4 %; Mean Corpuscular HGB Conc 31.9 g/dL (31.6-35.5); Mean Corpuscular Hemoglobin 29.1 pg (28.0-33.3); Mean Platelet Volume 10.8 fL (9.4-12.4); Monocytes % 9.4 %; Platelet Count 203 K/mcL (140-400); Red Blood Count 4.44 M/mcL (3.82-4.97); Red Cell Distribution Width 16.6 % (11.5-14.5); Segmented Neutrophils % 69.1 %; White Blood Count 10.1 K/mcL (4.3-11.1)
[2018-10-23] MEDS: Lisinopril 20 MG TABLET PO SCH ×2 (08:51→08:52)
[2018-10-23] MEDS: Aspirin 81 MG TAB.CHEW PO SCH (08:51)
[2018-10-23] MEDS: cloNIDine HCl 0.1 MG TABLET PO SCH (08:52)
[2018-10-23] MEDS: Cholecalciferol (D-3) 1,000 UNIT (25MCG) TABLET PO SCH (08:52)
[2018-10-23] MEDS: amLODIPine 5 MG TABLET PO SCH (08:52)
--- NOTE | 2018-10-23 10:17 | Neurology - Consult Note ---
Date of Encounter: 10/23/18 Time of Encounter: 10:14 Assessment and Plan (1) Left facial numbness Current Visit: Yes Status: Acute Per history, this appears to be chronic condition secondary to previous stroke occurred during November 2017. Patient has risk factor for CVA including unregulated high blood pressure hypertension and obesity. MRI of the brain without contrast demonstrated rather severe subcortical white matter signal changes consistent with Binswanger disease likely related to long-term uncontrolled hypertension as well as small lacunar infarct involving bilateral basal ganglia area. 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 However, i would like to recommend getting CTA of neck and head to assess intracranial atherosclerotic changes. Agree with aspirin 81mg daily and statin therapy and pursue aggressive risk factor modification for CVA. 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 Patient does have emotional lability that can be seen patient with pseudobulbar effect seen with patients with diffuse white matter ischemia. 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 Agree with Aspirin and statin therapy. 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 History of Present Illness Chief complaint: facial numbness and high BP HPI: Ms. Copeland is a 63 year old female with past medical history significant for hypertension, hyperlipidemia, overactive bladder, history of previous stroke who presented to the emergency room with fluctuating blood pressure and shortness breath. Neurology was consulted due to complaints of facial numbness. Patient states that she had a stroke November 2017 and was treated at [facility]. She has ever had left facial numbness since then. This is not so mething new. Patient's initial CT of the head showed no acute intracranial abnormality. Patient had MRI of the brain in the past which demonstrated rather severe subcortical white matter ischemic changes, resembling those seen in Binswanger disease. Past Med Surg Social Fam HX - Past Medical History Medical history: hyperlipidemia, hypertension, TIA Additional medical history: no deficits from CVA Psychiatric history: no psych history - Past Surgical History Surgical History: hysterectomy, other Additional surgical history: left hip replacement - Social History Smoking Status: Former smoker Smokeless Tobacco Status: No Alcohol use: none Drug use: none - Family History Mother Hx Family Cardiac Disorders: Yes (CAD) Father Living Status: Hx Family Cancer: Yes (Lung) Medications and Allergies Calcium Carbonate [Calcium] 500 mg PO DAILY 09/12/18 [History] Cholecalciferol (Vitamin D3) [Vitamin D3] 2,000 unit PO DAILY 09/12/18 [History] amLODIPine [Norvasc] 5 mg PO DAILY 09/12/18 [History] cloNIDine HCl [CloNIDine HCl] 0.05 mg PO 1200 09/12/18 [History] cloNIDine HCl [CloNIDine HCl] 0.1 mg PO BID 09/12/18 [History] Aspirin [Adult Aspirin Regimen] 81 mg PO DAILY 09/13/18 [History] Atorvastatin Calcium [Lipitor] 80 mg PO HS 09/13/18 [History] Glucosamine Sulfate Dipot Chlr [Glucosamine] 1,000 mg PO DAILY 09/13/18 [History] hydrOXYzine HCl [Hydroxyzine HCl] 25 - 50 mg PO Q6H PRN 09/13/18 [History] Lisinopril [Zestril] 20 mg PO DAILY #30 tablet 09/14/18 [Rx] LORazepam [Ativan] 0.5 mg PO TID 10/21/18 [History] Allergy/AdvReac Type Severity Reaction Status Date / Time No Known Allergies Allergy Verified 09/13/18 17:39 All Systems: The remainder of the systems were reviewed and are negative - Constitutional Constitutional ROS IM: as per HPI - Nose, Mouth, Throat Nose, mouth and throat: abnormal hearing (no), hoarseness (yes) - Cardiovascular Cardiovascular ROS IM: chest pain (no), chest pain at rest (no), chest pain with activity (no) - Respiratory Respiratory IM: cough (yes), dyspnea (yes), dyspnea on exertion (yes) - Gastrointestinal Gastrointestinal: abdominal pain (no) - Musculoskeletal Musculoskeletal ROS IM: abnormal gait (no) - Neurological Neurological ROS: headache(s) (no), lack of coordination (no), numbness (yes) - Psychiatric Psychiatric general PM: abnormal sleep pattern (no), anhedonia (no), auditory hallucinations (no) - Endocrine Endocrine IM: change in body appearance (no), deeping of the voice (no) - Hematologic/Lymphatic Hematologic/Lymphatic pediatric: easy bleeding (no) - Allergic/Immunologic Allergic/Immunologic ROS PM: tongue swelling (no) Physical Examination - Vital Signs Vital Signs: Initial Vital Signs Temp Pulse Resp BP Pulse Ox 97.9 F 98 18 156/112 100 10/21/18 11:47 10/21/18 11:47 10/21/18 11:47 10/21/18 11:47 10/21/18 11:47 - Constitutional General appearance: uncomfortable (emotional and teary when talking about her BP) - Neurologic Detailed motor examination: grossly full strength in all extremities Motor examination - right side: 5/5: deltoids, biceps, triceps, wrist flexion, wrist extension, prison teacher, hip flexors, tibialis Anterior, quadriceps, toe extension (EHL), plantarflexion Motor examination - left side: 5/5: deltoids, biceps, triceps, wrist flexion, wrist extension, hip flexors, prison teacher, quadriceps, tibialis Anterior, toe extension (EHL), plantarflexion Detailed sensory examination: intact Posture: other (None) Reflex and gait examination: intact Reflexes: Biceps: 1+, Triceps: 1+, Brachioradialis: 1+, Patella: 1+, Achilles: 1+ Mental Status Examination: awake, alert, oriented to person, oriented to place, oriented to time, follows commands appropriately, answers questions appropriately, no agnosia, no aphasia, no aproxia Cranial nerve examination: PERRL, EOMI, visual jeter intact, corneal reflexes brisk symmetrically, sensory to face intact, mastication intact, no facial asymmetry is present, no dysarthria, hearing is intact symmetrically, soft palate elevates bilaterally upon phonation, gag reflex intact, flexes SCM and trapezius muscles symmetrically with full power, tongue protrudes midline, no atrophy or facial fasiculations present Results - Laboratory Findings CBC and BMP: 10/23/18 01:01 10/22/18 00:22 Abnormal lab findings: Abnormal lab results WBC 11.2 K/mcL (4.3-11.1) H 10/22/18 00:22 RBC 5.20 M/mcL (3.82-4.97) H 10/21/18 12:03 Hct 47.0 % (35.3-44.9) H 10/21/18 12:03 RDW 16.6 % (11.5-14.5) H 10/23/18 01:01 Nucleated RBCs/100 WBC 0.2 /100 WBC (0) H 10/21/18 12:03 Heparin Anti-Xa, Unfract 1.01 IU/mL (0.30-0.70) H* 10/22/18 06:43 Chloride 110 mEq/L (98-107) H 10/22/18 00:22 Est GFR (Non-Af Amer) 57 (> 60) L 10/21/18 12:03 Glucose 151 mg/dL (70-105) H 10/22/18 00:22 POC Glucose 130 mg/dL (70-99) H 10/22/18 23:22 Calculated Osmolality 304 (280-300) H 10/21/18 12:03 HDL Cholesterol 67 mg/dL (40-59) H 10/22/18 00:22 Ur Leukocyte Esterase Trace (Negative) H 10/21/18 12:20 Urine Microscopic WBC 3-5 per hpf (0-3) H 10/21/18 12:20 Ur Squamous Epith Cells Many per lpf (None-Few) H 10/21/18 12:20 Ur Culture Indicated? YES (NO) A 10/21/18 12:20 - Diagnostic Findings Additional findings: EV/EV echocardiogram Impressions: LVEF 60-65%. Normal LV chamber size, wall thickness and function. Mild left ventricular diastolic dysfunction. Normal right ventricular structure and function. No evidence of pulmonary hypertension. No significant valvular dysfunction. CT OF THE HEAD WITHOUT CONTRAST 10/22/2018 12:17 pm TECHNIQUE: CT of the head was performed without the administration of intravenous contrast. Dose modulation, iterative reconstruction, and/or weight based adjustment of the mA/kV was utilized to reduce the radiation dose to as low as reasonably achievable. COMPARISON: 09/21/2018. HISTORY: ORDERING SYSTEM PROVIDED HISTORY: CVA r/o FINDINGS: BRAIN/VENTRICLES: There is no acute intracranial hemorrhage, mass effect or midline shift. No abnormal extra-axial fluid collection. The taylor-white differentiation is maintained without evidence of an acute infarct. There is prominence of the ventricles and sulci due to global parenchymal volume loss. There are nonspecific areas of hypoattenuation within the periventricular and subcortical white matter, which likely represent chronic microvascular ischemic change. ORBITS: The visualized portion of the orbits demonstrate no acute abnormality. SINUSES: The visualized paranasal sinuses and mastoid air cells demonstrate no acute abnormality. SOFT TISSUES/SKULL: No acute abnormality of the visualized skull or soft tissues. CT/CT head/brain wo con IMPRESSION: 1. No acute intracranial abnormality. 2. Chronic small vessel ischemic white matter disease and diffuse cerebral volume loss. D/ / Clayton Iniguez MD / Clayton Iniguez MD Interpreting Provider: Clayton Iniguez MD Consult Discharge Plan - Plan Referrals: Philip Solares, DO [Primary Care Provider] - (Please call office to schedule hospital follow up appointment for 7-10 days from date of discharge. )
[2018-10-23] MEDS ORDERED: Isovue-370 500 ML BOTTLE IVP ONE (11:17)
[2018-10-23 16:15] VITALS: BP 152/95
--- NOTE | 2018-10-23 17:30 | Discharge Summary ---
- NOTES TO OUTPATIENT PROVIDER Notes to Outpatient Provider: Patient was admitted for chest pain and strokelike symptom. Patient is to follow up with primary care provider within one week. Patient is to follow-up with neurology outpatient. Patient is to follow-up with cardiology outpatient to ealuate for nuclear stress test. Estimated PT Needs at Discharge: None Date of Encounter: 10/23/18 Time of Encounter: 17:26 - Discharge Diagnosis (1) Facial droop Priority: Primary Status: Acute (2) Chest pain due to CAD Priority: Secondary Status: Acute (3) SOB (shortness of breath) Priority: Secondary Status: Chronic (4) TIA (transient ischemic attack) Priority: Secondary Status: Chronic (5) Hypertension Priority: Secondary Status: Chronic Qualifiers: Hypertension type: essential hypertension Qualified Code(s): I10 - Essential (primary) hypertension (6) DVT prophylaxis Priority: Secondary Status: Acute Hospital course: Ms. Copeland is a 63 year old female with past medical history of hypertension, TIA, CVA, arthritis as to the emergency department with complaint of chest pain. Patient was initially started on heparin drip. Patient troponin was trended. Patient troponin were negative. Patient Echo was negative. Patient's heparin was subsequently discontinued. Patient was scheduled for stress test next day. However, patient got anxious so she could not finish the stress test. Patient patient's hospital stay was complicated by development of left-sided facial numbness weakness and slurred speech next day. CT scan was done stat which was negative. Neurologic consult was placed. Patient had a recent MRI done last month which was negative. Neurology recommended CTA evaluate for atherosclerotic disease. CTA showed chronic white matter microvascular ischemic changes and chronic appearing thalamic infarcts. There was no flow-limiting stenosis or branch occlusion identified within the head or neck. Patient was di scharged in stable condition. Patient was advised to continue aspirin and statin. Follow up with primary care provider within one week. Follow-up with neurology. Follow-up with cardiology outpatient for evaluation for stress test. Discharge discussed with: patient, nurse - Time Spent with Patient Total time spent providing and/or coordinating discharge services: 35 Time spent: Greater than 30 minutes - Discharge Medications Prescriptions: New Lisinopril [Zestril] 20 mg PO DAILY tablet Continued amLODIPine [Norvasc] 5 mg PO DAILY cloNIDine HCl [CloNIDine HCl] 0.1 mg PO BID Calcium Carbonate [Calcium] 500 mg PO DAILY Cholecalciferol (Vitamin D3) [Vitamin D3] 2,000 unit PO DAILY cloNIDine HCl [CloNIDine HCl] 0.05 mg PO 1200 Aspirin [Adult Aspirin Regimen] 81 mg PO DAILY Atorvastatin Calcium [Lipitor] 80 mg PO HS Glucosamine Sulfate Dipot Chlr [Glucosamine] 1,000 mg PO DAILY hydrOXYzine HCl [Hydroxyzine HCl] 25 - 50 mg PO Q6H PRN PRN Reason: Anxiety Lisinopril [Zestril] 20 mg PO DAILY #30 tablet LORazepam [Ativan] 0.5 mg PO TID Home Medications: Calcium Carbonate [Calcium] 500 mg PO DAILY 09/12/18 [History] Cholecalciferol (Vitamin D3) [Vitamin D3] 2,000 unit PO DAILY 09/12/18 [History] amLODIPine [Norvasc] 5 mg PO DAILY 09/12/18 [History] cloNIDine HCl [CloNIDine HCl] 0.05 mg PO 1200 09/12/18 [History] cloNIDine HCl [CloNIDine HCl] 0.1 mg PO BID 09/12/18 [History] Aspirin [Adult Aspirin Regimen] 81 mg PO DAILY 09/13/18 [History] Atorvastatin Calcium [Lipitor] 80 mg PO HS 09/13/18 [History] Glucosamine Sulfate Dipot Chlr [Glucosamine] 1,000 mg PO DAILY 09/13/18 [History] hydrOXYzine HCl [Hydroxyzine HCl] 25 - 50 mg PO Q6H PRN 09/13/18 [History] Lisinopril [Zestril] 20 mg PO DAILY #30 tablet 09/14/18 [Rx] LORazepam [Ativan] 0.5 mg PO TID 10/21/18 [History] Lisinopril [Zestril] 20 mg PO DAILY tablet 10/23/18 [Rx] Allergies/Adverse Reactions: Allergy/AdvReac Type Severity Reaction Status Date / Time No Known Allergies Allergy Verified 09/13/18 17:39 Date of admission: 10/21/18 15:04 Primary care physician: Philip Wills Colopy Consults: 10/21/18 16:49 Consult to 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 Patient receives help from neighbor for meds and food. 10/22/18 13:12 Consult to Neurology [CONS] Stat Consulting Provider: Neu[facility] Reason for Consult: Facial droop and slurred speech Call Completed: Yes Discharging clinician: Taz Iniguez - Constitutional Vitals: Temp Pulse Resp BP Pulse Ox 98.0 F 81 16 152/95 99 10/23/18 16:15 10/23/18 16:15 10/23/18 16:15 10/23/18 16:15 10/23/18 16:15 General appearance: Present: cooperative, A&O X 3 Exam: General: A & O 3, In no acute distress HENNT: PERRLA. Head atraumatic and makes supple Eye: no scleral icterus CVS S1 and S2 regular, no murmur RS: Clear to air entry bilaterally, no wheeze, no crackles Abdomen: Soft and nontender. Bowel sounds normal 4 Extremities: No cyanosis, clubbing, and edema, venous stasis bilaterally. Skin: Venous stasis rash and pigmentation bilaterally on lower extremity. Neurology: Cranial II - XII normal. Motor strength 4/5 bilaterally. Sensation intact, Reflex 1+ bilaterally. Left facial droop noted - Patient Status Disposition: Home, Self-Care Overall status at discharge: patient is progressing back to baseline - Discharge Instructions Follow Up With: Philip Solares DO [Primary Care Provider] - (Please call office to schedule hospital follow up appointment for 7-10 days from date of discharge. ) - Diet and Activity Activity: as per physical therapy Diet: diabetic diet, low salt diet
--- NOTE | 2018-10-23 22:34 | Electrocardiograph Report ---
[address] [place], [place] [address] Test Date: 2018-10-21 Pat Name: Ana Maria Copeland Department: [id number] Room: 3B47 Gender: F Public Service Officer: : 1955 Requested By: Ghazal Haro Order Number: [id number] Reading MD: Ninfa Diego Measurements Intervals [place] Rate: 100 P: 43 PA: 121 QRS: -15 QRSD: 77 T: 47 QT: 336 QTc: 434 Interpretive Statements Sinus tachycardia Borderline ST depression, lateral leads Electronically Signed On 10-23-2018 22:32:38 EDT by Ninfa Diego
--- NOTE | 2018-10-24 10:18 | Electrocardiograph Report ---
[address] [place] [address] Test Date: 2018-10-22 Pat Name: Ana Maria Copeland Department: [id number] Room: 3B47 Gender: F Apartment Maintenance Supervisor: : 1955 Requested By: Taz Iniguez Order Number: [id number] Reading MD: Ninfa Diego Measurements Intervals [place] Rate: 81 P: 28 RI: 126 QRS: -11 QRSD: 72 T: 48 QT: 378 QTc: 415 Interpretive Statements SINUS RHYTHM Electronically Signed On 10-24-2018 10:16:57 EDT by Ninfa Diego
--- NOTE | 2018-10-26 11:07 | Electrocardiograph Report ---
[place] [employer] Test Date: 2018-10-21 Pat Name: Ana Maria Copeland Department: [id number] Room: 3B47 Gender: F Labor Delivery Specialist: : 1955 Requested By: Andres Daley Order Number: [id number] Reading MD: Trae Hoyos Measurements Intervals [place] Rate: 83 P: 37 [place]: 121 QRS: -16 QRSD: 82 T: 52 QT: 373 QTc: 439 Interpretive Statements Sinus rhythm Borderline left axis deviation Electronically Signed On 10-26-2018 11:05:04 EDT by Trae Hoyos
== END 2018-10-23 18:49 | disposition home or self-care (01) ==
LOC: EMEROOARM 11:41 → 3BNU 11:41 → SUATTDRO 15:04 → 3BNU 15:53
PROVIDERS: ADMIT Internal Medicine; ATTEND Family Medicine